=== PATIENT | male | born 1990 | race Native Hawaiian/Other Pacific Islander ===

== ENCOUNTER 2020-08-27 08:31 | Outpatient (REF) | payer MEDICAID, SELFPAY | END 2020-08-27 08:32 | disposition home or self-care (01) | LOC: HO.LAB 08:31 | PROVIDERS: Visit Provider Internal Medicine | DX: Z20.828 Contact with and (suspected) exposure to other viral communicable diseases (principal) | CPT/HCPCS: C9803; U0003 ==

== ENCOUNTER 2021-01-31 09:20 | Outpatient (REF) | payer MEDICAID, SELFPAY ==
[2021-01-31 09:46] LABS: COVID-19 Test Negative (Negative)
== END 2021-01-31 09:21 | disposition home or self-care (01) ==
LOC: HO.LAB 09:20
PROVIDERS: Visit Provider Internal Medicine
DX: Z20.822 Contact with and (suspected) exposure to COVID-19 (principal)
CPT/HCPCS: 36415; 87635; C9803

== ENCOUNTER 2021-02-11 09:38 | Outpatient (REF) | payer MEDICAID, SELFPAY ==
[2021-02-11 10:56] LABS: MANUAL DIFF FLAG NO
[2021-02-11 11:01] LABS: Basophils Percent Auto 0.6 % (0-2); Eosinophils Absolute Auto 0.2 X10*3/uL (0.0-0.4); Eosinophils Percent Auto 2.6 % (0-4); Hematocrit 46.3 % (42-52); Hemoglobin 14.8 g/dl (14.0-18.0); Imm Gran Abs Auto 0.02 X10*3/uL (0.00-0.03); Imm Gran Pct Auto 0.3 % (0.0-0.4); Lymphocytes Absolute Auto 2.5 X10*3/uL (1.2-4.9); Mean Corpuscular Hemoglobin 27.1 pg (27.0-33.0); Mean Corpuscular Volume 84.8 fL (80-98); Mean Platelet Volume 9.4 fL (9.4-12.4); Monocytes Absolute Auto 0.6 X10*3/uL (0.1-1.2); Monocytes Percent Auto 8.5 % (2-11); Neutrophils Absolute Auto 3.8 X10*3/uL (2.0-8.3); Platelet Count 306 X10*3/uL (160-400); Red Blood Count 5.46 X10*6/uL (4.60-5.80); Red Cell Distribution Width 13.1 % (11.0-16.0); White Blood Count 7.2 X10*3/uL (4.8-10.8)
[2021-02-11 11:20] LABS: Alanine Aminotransferase 32 U/L (0-40); Albumin Level 4.4 g/dL (3.5-5.0); Alkaline Phosphatase 108 U/L (39-117); Anion Gap 11 (12-20); Aspartate Amino Transferase 22 U/L (5-37); Bilirubin Total 0.3 mg/dL (0.0-1.0); Blood Urea Nitrogen 21 mg/dL (9-16); Calcium 10.2 mg/dL (8.4-10.2); Carbon Dioxide 29 mmol/L (22-29); Chloride 105 mmol/L (96-108); Cholesterol 127 mg/dL; Estimated Glomerular Filt Rate > 60; Glucose Random 108 mg/dL (60-115); HDL Cholesterol 31 mg/dL; LDL Cholesterol Calculated 82 mg/dl; Potassium 5.5 mmol/L (3.3-5.1); Sodium 139 mmol/L (135-145); Total Protein 7.8 g/dL (6.5-8.0); Triglycerides 71 mg/dL
[2021-02-11 11:41] LABS: Thyroid Stimulating Hormone 0.86 uIU/mL (0.32-4.0)
== END 2021-02-11 09:39 | disposition home or self-care (01) ==
LOC: HO.LAB 09:38
PROVIDERS: PCP Internal Medicine; Visit Provider Internal Medicine
DX: Z00.00 Encounter for general adult medical examination without abnormal findings (principal); E66.01 Morbid (severe) obesity due to excess calories; F11.14 Opioid abuse with opioid-induced mood disorder; R21 Rash and other nonspecific skin eruption
CPT/HCPCS: 36415; 80053; 80061; 84443; 85025

== ENCOUNTER 2021-09-14 08:57 | Emergency (ER) | payer MEDICAID, SELFPAY ==
[2021-09-14 10:22] VITALS: BP 116/75; PULSE 83; RESP 16; TEMP 36.8; O2SAT 97; BMI 34.8
[2021-09-14 10:42] VITALS: BP 116/76; PULSE 82; RESP 18; O2SAT 99
--- NOTE | 2021-09-14 10:44 | PC.NURSE ---
pt alert and oriented, vss, denies pain. pt c/o nausea and one episode of diarrhea that started last night. no vomiting, no fever, no sob, no headache, no dizziness. pt reports that both his 2 yr old and his 8 yr old step-son has been having the same symptoms. he reports his 2 yr was diagnosed with ear infection but no diagnosis for his 8 yr old.
--- NOTE | 2021-09-14 10:55 | ED.NAVMDI ---
HPI - Nausea/Vomiting/Diarrhea General Chief complaint: Nausea/Vomiting/Diarrhea Stated complaint: vomiting Time Seen by Provider: 09/14/21 10:49 Source: patient Mode of arrival: ambulatory Limitations: no limitations History of Present Illness HPI Narrative: This is a 31 years old male presented to the emergency department with a chief complaint no nausea MD elicited complaint: nausea, vomiting and diarrhea Onset (ago): day(s) (1) Description of vomiting: watery Description of diarrhea: watery Associated nausea: Yes Associated abdominal pain: No Quality: cramping Associated symptoms: denies other symptoms Related Data Allergies Allergy/AdvReac Type Severity Reaction Status Date / Time shellfish derived Allergy Intermediate HIVES Verified 09/14/21 10:22 [SHELLFISH DERIVED] Review of Systems Review of Systems: Yes all other systems are reviewed and are negative ENT: Reports system reviewed and no additional complaints, except as documented Gastrointestinal: Gastrointestinal: Reports no additional gastrointestinal complaints, Reports diarrhea, Reports nausea and Reports vomiting Neurologic: Reports system reviewed and no additional complaints, except as documented PMFSH Past Medical History Attestation statement: The following information was validated with the patient. Medical History No known health problems Social History Social History Advance Directives: No Advance Directives Information Provided: No Physical Exam Vital Signs: Vital Signs: Last Vital Signs Temp 98.2 F 09/14/21 10:22 Pulse 82 09/14/21 10:42 Resp 18 09/14/21 10:42 BP 116/76 09/14/21 10:42 Pulse Ox 99 09/14/21 10:42 BMI result Body Mass Index 34.8 Const: General: cooperative and comfortable HENMT: Head: Yes normal to inspection General nose exam: Normal external nose present Face and sinus: Yes normal facial exam Mouth: Normal oral and palatal mucosa present Neck: Neck: Yes normal visual inspection, Yes full ROM and Yes no lymphadenopathy Chest: Chest palpation & inspection: normal inspection of the chest Resp: Effort & Inspection: normal respiratory effort Auscultation: clear to auscultation bilaterally Cardio: Jugular venous distension: no JVD Rate: regular rate Rhythm: regular rhythm GI: Inspection: Yes normal to inspection Skin: General skin exam: no rashes or lesions noted Course Reevaluation(s) Reevaluation #1: Feels much better no further vomiting tolerating po well ,Labs OK,will d/c home MDM - Nausea/Vomiting/Diarrhea Lab Data Attestation: I reviewed the patient's lab results. Result diagrams: 09/14/21 10:59 09/14/21 11:00 Labs: Lab Results 09/14/21 09/14/21 09/14/21 Range/Units 10:59 10:59 11:00 WBC 7.2 (4.8-10.8) X10*3/uL RBC 5.42 (4.60-5.80) X10*6/uL Hgb 15.1 (14.0-18.0) g/dl Hct 46.0 (42.0-52.0) % MCV 84.9 (80.0-98.0) fL MCH 27.9 (27.0-33.0) pg MCHC 32.8 (31.0-36.0) g/dl RDW 13.2 (11.0-16.0) % Plt Count 310 (160-400) X10*3/uL MPV 9.2 L (9.4-12.4) fL Immature Gran % (Auto) 0.3 (0.0-0.4) % Neut % (Auto) 52.9 (45-73) % Lymph % (Auto) 36.2 (20-40) % [place] % (Auto) 7.5 (2-11) % Eos % (Auto) 2.3 (0-4) % Baso % (Auto) 0.8 (0-2) % Lymph # (Auto) 2.6 (1.2-4.9) X10*3/uL [place] # (Auto) 0.5 (0.1-1.2) X10*3/uL Eos # (Auto) 0.2 (0.0-0.4) X10*3/uL Baso # (Auto) 0.1 (0.0-0.2) X10*3/uL Abs Immat Gran (auto) 0.02 (0.00-0.03) X10*3/uL Absolute Neuts (auto) 3.8 (2.0-8.3) x10*3/uL Absolute Nucleated RBC 0.000 (0.0-0.012) X10*3/uL Nucleated RBC % (auto) 0.0 (0.0-0.2) /100WBC Sodium 139 (135-145) mmol/L Potassium 4.8 (3.3-5.1) mmol/L Chloride 106 (96-108) mmol/L Carbon Dioxide 26 (22-29) mmol/L Anion Gap 12 (12-20) BUN 24 H (9-16) mg/dL Creatinine 1.03 (0.5-1.4) mg/dL Estim Creat Clear Calc 134.2 Estimated GFR > 60 Random Glucose 123 H (60-115) mg/dL Calcium 10.2 (8.4-10.2) mg/dL Total Bilirubin 0.3 (0.0-1.0) mg/dL AST 24 (5-37) U/L ALT 32 (0-40) U/L Alkaline Phosphatase 118 H (39-117) U/L Total Protein 8.3 H (6.5-8.0) g/dL Albumin 4.5 (3.5-5.0) g/dL Lipase 24 (8-78) U/L COVID-19 ([facility]) Negative (Negative) COVID-19 Clin Com See Note Discharge Plan Discharge Clinical Impression: Vomiting Patient Disposition: Home, Self-Care Instructions: Acute Nausea and Vomiting (ED) Referrals: Yue Angulo MD [Primary Care Provider] - 2 days Stand Alone Forms: Work/School Release
[2021-09-14 11:04] LABS: MANUAL DIFF FLAG NO
[2021-09-14 11:05] LABS: Basophils Absolute Auto 0.1 X10*3/uL (0.0-0.2); Basophils Percent Auto 0.8 % (0-2); Eosinophils Absolute Auto 0.2 X10*3/uL (0.0-0.4); Eosinophils Percent Auto 2.3 % (0-4); Hemoglobin 15.1 g/dl (14.0-18.0); Imm Gran Abs Auto 0.02 X10*3/uL (0.00-0.03); Imm Gran Pct Auto 0.3 % (0.0-0.4); Lymphocytes Absolute Auto 2.6 X10*3/uL (1.2-4.9); Lymphocytes Percent Auto 36.2 % (20-40); Mean Corpuscular HGB Conc 32.8 g/dl (31.0-36.0); Mean Corpuscular Hemoglobin 27.9 pg (27.0-33.0); Mean Corpuscular Volume 84.9 fL (80.0-98.0); Mean Platelet Volume 9.2 fL (9.4-12.4); Monocytes Absolute Auto 0.5 X10*3/uL (0.1-1.2); Monocytes Percent Auto 7.5 % (2-11); Neutrophils Absolute Auto 3.8 x10*3/uL (2.0-8.3); Neutrophils Percent Auto 52.9 % (45-73); Platelet Count 310 X10*3/uL (160-400); Red Blood Count 5.42 X10*6/uL (4.60-5.80); Red Cell Distribution Width 13.2 % (11.0-16.0); White Blood Count 7.2 X10*3/uL (4.8-10.8)
[2021-09-14 11:32] LABS: Alanine Aminotransferase 32 U/L (0-40); Albumin Level 4.5 g/dL (3.5-5.0); Alkaline Phosphatase 118 U/L (39-117); Anion Gap 12 (12-20); Aspartate Amino Transferase 24 U/L (5-37); Bilirubin Total 0.3 mg/dL (0.0-1.0); Blood Urea Nitrogen 24 mg/dL (9-16); Calcium 10.2 mg/dL (8.4-10.2); Carbon Dioxide 26 mmol/L (22-29); Chloride 106 mmol/L (96-108); Creatinine Clr Calc Pharmacy 134.2; Estimated Glomerular Filt Rate > 60; Glucose Random 123 mg/dL (60-115); Lipase 24 U/L (8-78); Potassium 4.8 mmol/L (3.3-5.1); Sodium 139 mmol/L (135-145); Total Protein 8.3 g/dL (6.5-8.0)
[2021-09-14] MEDS: 0.9 % Sodium Chloride 1,000 ML 999 ML IVCONT (11:51)
[2021-09-14 12:02] LABS: COVID-19 Test Negative (Negative)
--- NOTE | 2021-09-14 12:23 | PC.NURSE ---
pt medically cleared for discharge, discharge summary given and explained to pt. pt alert and oriented, denies pain. no complaints. steady gait on discharge.
== END 2021-09-14 12:23 | disposition home or self-care (01) ==
PROVIDERS: Emergency Provider Emergency Medicine; PCP Internal Medicine
DX: R11.2 Nausea with vomiting, unspecified (principal); Z20.822 Contact with and (suspected) exposure to COVID-19
CPT/HCPCS: 36415; 80053; 83690; 85025; 87635; 96360; 99284

== ENCOUNTER 2021-11-25 08:30 | Emergency (ER) | payer MEDICAID, SELFPAY ==
[2021-11-25 08:50] VITALS: BP 120/68; PULSE 73; RESP 18; TEMP 36.3; O2SAT 98; BMI 33.5
--- NOTE | 2021-11-25 09:08 | ED.NAVMDI ---
HPI - Nausea/Vomiting/Diarrhea General Chief complaint: Nausea/Vomiting/Diarrhea Stated complaint: Diarrhea Time Seen by Provider: 11/25/21 09:02 Source: patient and paraprofessional interpreter Mode of arrival: ambulatory Limitations: language barrier History of Present Illness HPI Narrative: 31-year-old male healthy here with reports of multiple episodes of diarrhea in the last 24 hours with no associated abdominal pain, vomiting, fever, urinary symptoms. The patient is here with his son who has similar symptoms. Associated nausea: No Related Data Allergies Allergy/AdvReac Type Severity Reaction Status Date / Time shellfish derived Allergy Intermediate HIVES Verified 11/25/21 08:50 [SHELLFISH DERIVED] Review of Systems Review of Systems: Yes all other systems are reviewed and are negative Constitutional: Constitutional: Reports no additional constitutional complaints, Denies body ache(s), Denies chills, Denies fever(s), Denies headache(s) and Denies weakness Eyes: Eyes: Reports no additional eye complaints and Denies change in vision ENT: Reports system reviewed and no additional complaints, except as documented, Denies dizziness, Denies headache(s), Denies nasal congestion, Denies nasal discharge and Denies neck pain Cardiovascular: Cardiovascular: Reports no additional cardiovascular complaints, Denies chest pain, Denies leg edema and Denies dyspnea Respiratory: Respiratory: Reports no additional respiratory complaints, Denies cough and Denies dyspnea Gastrointestinal: Gastrointestinal: Reports no additional gastrointestinal complaints, Denies abdominal pain, Reports diarrhea, Denies nausea and Denies vomiting Genitourinary: Genitourinary: Denies urinary incontinence Musculoskeletal: Musculoskeletal: Reports no additional musculoskeletal complaints, Denies back pain, Denies arthralgias, Denies joint swelling, Denies neck pain, Denies numbness and Denies tingling Integumentary/Breasts: Skin/Breast: Reports system reviewed and no additional complaints, except as docu and Denies rash Neurologic: Reports system reviewed and no additional complaints, except as documented, Denies Abnormal speech present, Denies dizziness, Denies headache(s), Denies numbness, Denies tingling and Denies weakness PMFSH Past Medical History Attestation statement: The following information was validated with the patient. Source: old records reviewed and nursing notes reviewed Medical History No known health problems Social History Social History Advance Directives: No Advance Directives Information Provided: Yes Physical Exam Vital Signs: Vital Signs: Last Vital Signs Temp 97.3 F 11/25/21 08:50 Pulse 73 11/25/21 08:50 Resp 18 11/25/21 08:50 BP 120/68 11/25/21 08:50 Pulse Ox 98 11/25/21 08:50 BMI result Body Mass Index 33.5 Const: General: cooperative, healthy appearing, comfortable and no acute distress Orientation/consciousness: patient oriented x3 Limitations: no limitations HENMT: Head: Yes normal to inspection Ears: hearing grossly normal bilaterally and TM's normal bilaterally General nose exam: Normal external nose present Face and sinus: Yes normal facial exam Mouth: Normal oral and palatal mucosa present Throat: Yes posterior oropharynx normal, Yes tonsils normal and Yes uvula midline Eyes: General: appearance normal, both eyes and all related structures Pupils: Equal, round and reactive pupils present Neck: Neck: Yes normal visual inspection Chest: Chest palpation & inspection: normal inspection of the chest Resp: Effort & Inspection: normal respiratory effort Auscultation: clear to auscultation bilaterally Cardio: Rate: regular rate Rhythm: regular rhythm Peripheral pulses: Peripheral pulses 2+ throughout GI: Inspection: Yes normal to inspection Palpation (GI): Soft to palpation and nontender Auscultation: normal bowel sounds Back/Spine/Pelvis: Thoracic/Lumbar Spine: thoracic and lumbar spine normal to inspection Skin: General skin exam: no rashes or lesions noted Neuro: General: patient oriented x3, no focal motor deficits and normal sensation to monofilament Cranial nerves: Yes Equal, round and reactive pupils present Cognition (Neuro): normal cognition Speech: No Abnormal speech present Gait exam (Neuro): Normal gait present Motor exam (neuro): 5/5 motor strength present throughout Extrem: General: Yes normal to inspection Course Course Course Narrative: 31-year-old male here with reports of diarrhea multiple episodes in the last 24 hours with no reports abdominal pain or vomiting. Patient is here with some with similar symptoms. Dad tells me that there are multiple people aty home with similar symptoms. Vitals are stable. Patient appears well hydrated. He is tolerating p.o.. Abdomen is soft nontender. Likely viral. Will check COVID screen 0958-COVID screen is negative. Likely viral syndrome. Reviewed worrisome signs and symptoms when to return to the emergency department. Comfortable discharge home. MDM - Nausea/Vomiting/Diarrhea Medical Records Attestation: I reviewed the patient's medical records. Lab Data Attestation: I reviewed the patient's lab results. Labs: Lab Results 11/25/21 Range/Units 09:26 COVID-19 ([facility]) Negative (Negative) COVID-19 Clin Com See Note Discharge Plan Discharge Clinical Impression: Gastroenteritis Patient Disposition: Home, Self-Care Instructions: Gastroenteritis (DC) Additional Instructions: Start with clear liquids and then advance diet as tolerated Referrals: Yue Angulo MD [Primary Care Provider] - 1 week (For persistent symptoms) Stand Alone Forms: Work/School Release Print Language: Grenadian
[2021-11-25 09:51] LABS: COVID-19 Test Negative (Negative)
== END 2021-11-25 09:58 | disposition home or self-care (01) ==
PROVIDERS: Nurse Practitioner Family; Emergency Provider Emergency Medicine; PCP Internal Medicine
DX: K52.9 Noninfective gastroenteritis and colitis, unspecified (principal); Z20.822 Contact with and (suspected) exposure to COVID-19
CPT/HCPCS: 87635; 99282; 99283

== ENCOUNTER 2022-02-16 08:45 | Outpatient (REF) | payer MEDICAID, SELFPAY ==
[2022-02-16 09:17] LABS: MANUAL DIFF FLAG NO
[2022-02-16 09:42] LABS: Basophils Absolute Auto 0.1 X10*3/uL (0.0-0.2); Basophils Percent Auto 0.8 % (0-2); Eosinophils Absolute Auto 0.2 X10*3/uL (0.0-0.4); Eosinophils Percent Auto 2.1 % (0-4); Hematocrit 43.5 % (42.0-52.0); Hemoglobin 14.2 g/dl (14.0-18.0); Imm Gran Abs Auto 0.02 X10*3/uL (0.00-0.03); Imm Gran Pct Auto 0.3 % (0.0-0.4); Lymphocytes Absolute Auto 2.6 X10*3/uL (1.2-4.9); Lymphocytes Percent Auto 34.9 % (20-40); Mean Corpuscular HGB Conc 32.6 g/dl (31.0-36.0); Mean Corpuscular Hemoglobin 27.4 pg (27.0-33.0); Mean Corpuscular Volume 83.8 fL (80.0-98.0); Mean Platelet Volume 9.5 fL (9.4-12.4); Monocytes Absolute Auto 0.6 X10*3/uL (0.1-1.2); Monocytes Percent Auto 8.1 % (2-11); Neutrophils Absolute Auto 4.1 x10*3/uL (2.0-8.3); Neutrophils Percent Auto 53.8 % (45-73); Platelet Count 297 X10*3/uL (160-400); Red Blood Count 5.19 X10*6/uL (4.60-5.80); Red Cell Distribution Width 13.4 % (11.0-16.0); White Blood Count 7.5 X10*3/uL (4.8-10.8)
[2022-02-16 09:58] LABS: Alanine Aminotransferase 32 U/L (0-40); Albumin Level 4.2 g/dL (3.5-5.0); Alkaline Phosphatase 113 U/L (39-117); Anion Gap 12 (12-20); Aspartate Amino Transferase 22 U/L (5-37); Bilirubin Total 0.3 mg/dL (0.0-1.0); Blood Urea Nitrogen 19 mg/dL (9-16); Calcium 9.8 mg/dL (8.4-10.2); Carbon Dioxide 24 mmol/L (22-29); Chloride 106 mmol/L (96-108); Cholesterol 137 mg/dL; Estimated Glomerular Filt Rate > 60; Glucose Random 109 mg/dL (60-115); HDL Cholesterol 31 mg/dL; LDL Cholesterol Calculated 88 mg/dl; Potassium 4.8 mmol/L (3.3-5.1); Sodium 137 mmol/L (135-145); Triglycerides 92 mg/dL
== END 2022-02-16 08:46 | disposition home or self-care (01) ==
LOC: HO.LAB 08:45
PROVIDERS: PCP Internal Medicine; Visit Provider Internal Medicine
DX: Z00.00 Encounter for general adult medical examination without abnormal findings (principal); R10.31 Right lower quadrant pain; F11.14 Opioid abuse with opioid-induced mood disorder; Z72.0 Tobacco use
CPT/HCPCS: 36415; 80053; 80061; 85025

== ENCOUNTER 2022-03-20 05:53 | Emergency (ER) | payer MEDICAID, SELFPAY ==
[2022-03-20 06:03] VITALS: BP 126/79; PULSE 83; RESP 18; TEMP 36.9; O2SAT 98
[2022-03-20 06:10] VITALS: BP 126/79; PULSE 83; RESP 18; TEMP 36.9; O2SAT 98; BMI 34.7
--- NOTE | 2022-03-20 06:36 | ED.ABDPAIN ---
HPI - Abdominal Pain General Chief Complaint: Abdominal Pain Stated Complaint: n/v/d Time Seen by Provider: 03/20/22 06:35 Source: patient Mode of arrival: ambulatory Limitations: no limitations History of Present Illness HPI narrative: Patient with increased pain with N/V/D. This morning he had vomiting and diarrhea with eating and drinking. Patient had only one moderna vaccine. No one else at home is sick. Patient denies eating bad food or being food poisoned. MD elicited complaint: abdominal pain Pertinent past history: none Onset (ago): day(s) (3) Location: diffuse Severity: mild Quality: aching Exacerbating factors: eating Associated symptoms: nausea, vomiting, diarrhea and fever Related Data Previous Rx's Medication Instructions Recorded ondansetron 4 mg disintegrating 4 mg PO Q8H 4 days #12 tabs 03/20/22 tablet Allergies Allergy/AdvReac Type Severity Reaction Status Date / Time shellfish derived Allergy Intermediate HIVES Verified 11/25/21 08:50 [SHELLFISH DERIVED] Review of Systems Constitutional: Reports no additional constitutional complaints Eyes: Reports no additional eye complaints Denies dizziness Cardiovascular: Reports no additional cardiovascular complaints Respiratory: Reports as per HPI Gastrointestinal: Reports no additional gastrointestinal complaints Musculoskeletal: Reports no additional musculoskeletal complaints Skin/Breast: Denies rash Reports system reviewed and no additional complaints, except as documented, Denies dizziness and Denies Sensory deficit (Neuro) Psychiatric: Denies anxiety PMFSH Past Medical History Medical History No known health problems Social History Social History Advance Directives: No Advance Directives Information Provided: Yes Physical Exam ED Vital Signs: Vital Signs - 24 hr 03/20/22 06:03 03/20/22 06:10 Temperature 98.5 F 98.5 F Pulse Rate 83 83 Respiratory Rate 18 18 Blood Pressure 126/79 126/79 Pulse Oximetry 98 98 Oxygen Delivery Method Room Air Room Air BMI result Body Mass Index 34.7 Const General: healthy appearing Nutritional Appearance: average body habitus Orientation/consciousness: oriented to person and patient oriented x3 Limitations: no limitations HENMT Head: Yes normal to inspection Ears: external ears normal General nose exam: Normal external nose present Mouth: Normal oral and palatal mucosa present and oropharynx normal Throat: Yes posterior oropharynx normal Eyes General: appearance normal, both eyes and all related structures Neck Neck: Yes normal visual inspection Chest Chest palpation & inspection: normal inspection of the chest Resp Auscultation: clear to auscultation bilaterally Cardio Jugular venous distension: no JVD Rate: regular rate Rhythm: regular rhythm Heart sounds: S1 normal heart sound present and S2 normal heart sound present GI Inspection: Yes normal to inspection Palpation (GI): Soft to palpation, nontender and No hepatosplenomegaly present Auscultation: normal bowel sounds General: Yes no CVA tenderness Back/Spine/Pelvis Back: no CVA tenderness Skin General skin exam: no rashes or lesions noted Neuro General: oriented to person and patient oriented x3 Cranial nerves: Yes CN's II-XII intact bilaterally Motor exam (neuro): 5/5 motor strength present throughout Sensory Exam: No Sensory deficit (Neuro) Extrem General: Yes normal to inspection Psych Appearance: grossly normal Course Reevaluation(s) Reevaluation #1: patient with soft abdomen non focal, history likely secondary to viral gastroenteritis. Will start zofran, clear liquid diet and advance to BRAT diet when his vomiting and diarrhea stop Time: 06:46 Discharge Plan Discharge Clinical Impression: Gastroenteritis Patient Disposition: Home, Self-Care Instructions: Acute Nausea and Vomiting (ED), Acute Diarrhea (ED) Additional Instructions: clear liquid diet until diarrhea stops and then advance to BRAT diet Prescriptions: New ondansetron 4 mg tablet,disintegrating 4 mg PO Q8H 4 Days Qty: 12 0RF Referrals: Yue Angulo MD [Primary Care Provider] - 10 days Stand Alone Forms: Work/School Release
[2022-03-20] MEDS: Ondansetron ODT 4 MG TAB.RAPDIS TRANSLINGU (07:18)
== END 2022-03-20 08:00 | disposition home or self-care (01) ==
PROVIDERS: Emergency Provider Emergency Medicine; PCP Internal Medicine
DX: K52.9 Noninfective gastroenteritis and colitis, unspecified (principal)
CPT/HCPCS: 99282; 99283

== ENCOUNTER 2022-09-25 09:09 | Emergency (ER) | payer MEDICAID, SELFPAY ==
--- NOTE | 2022-09-25 09:34 | ED.ABDPAIN ---
HPI - Abdominal Pain General Stated Complaint: Pain Bellybutton Area Time Seen by Provider: 09/25/22 09:28 Source: patient Mode of arrival: ambulatory Limitations: no limitations History of Present Illness HPI narrative: 32 year old male with abdominal pain around his belly button. He has had pain for the past week. 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 He denies any issues with eating or having a bowel movement. He has never had surgery he denies nausea vomiting or diarrhea. He states he is otherwise healthy. Never had this problem in the past. MD elicited complaint: abdominal pain Related Data Previous Rx's Medication Instructions Recorded ondansetron 4 mg disintegrating 4 mg PO Q8H 4 days #12 tabs 03/20/22 tablet Allergies Allergy/AdvReac Type Severity Reaction Status Date / Time shellfish derived Allergy Intermediate HIVES Verified 11/25/21 08:50 [SHELLFISH DERIVED] Review of Systems Review of Systems Review of systems: General: Patient denies any fever chills recent illness or falls Musculoskeletal: Denies back pain or body aches or other injuries HEENT: denies headache, runny nose, ear pain Respiratory: denies shortness of breath, cough Cardiovascular: no chest pain or palpitations : denies dysuria, frequency Abdomen: no nausea vomiting periumbilical abdominal pain Extremities: no swelling, no pain Skin: no diaphoresis Yes all other systems are reviewed and are negative PMFSH Past Medical History Medical History No known health problems Physical Exam ED General: Well-appearing well-nourished in no signs of distress HEENT: Normocephalic atraumatic Neck: No signs of JVD, no masses no tenderness or lymphadenopathy Cardiovascular: Regular rate and rhythm Respiratory: Clear to auscultation bilaterally Abdomen: Soft non tender no masses around the belly button no hernia palpated it is slightly tender, hernia check in the scrotum with no hernia palpated. Extremities: Normal pedal pulses no signs of edema Skin: Dry warm no rashes Back: No tenderness full ROM Medical Decision Making Medical Decision Making MDM Narrative: Concern for hernia vs intraabdominal issue. I think this is more likely a strain his exam is fairly benign and he is eating drinking and having normal bowel movements. I don't think he needs a CT and will play conservative with rest heating pad and ibuprofen at this time. Differential Diagnosis Differential Diagnoses: The differential diagnosis associated with the presentation includes appendicitis, hernia, obstruction, diverticulitis. It appears to just by a strain as I am unable to palpate a hernia and he is eating an drinking normally. Admission/Observation Consideration of admission/observation: Escalation of care including admission/observation considered Patient looks well normal exam Discharge Plan Discharge Clinical Impression: Abdominal muscle strain Patient Disposition: Home, Self-Care Instructions: Abdominal Pain (ED), Muscle Strain (ED), Core Strengthening Exercises (ED) Additional Instructions: You can use a heating pad as needed. You can also your tylenol or ibuprofen. If you can't have a bowel movement have worsening pain or any other concerns please return to the ED. Prescriptions: No Action ondansetron 4 mg tablet,disintegrating 4 mg PO Q8H 4 Days Qty: 12 0RF Stand Alone Forms: Work/School Release
[2022-09-25 09:39] VITALS: BP 116/82; PULSE 83; RESP 16; TEMP 36.7; O2SAT 97; BMI 34.8
[2022-09-25] MEDS: Ibuprofen 400 MG TABLET PO (09:49)
== END 2022-09-25 09:51 | disposition home or self-care (01) ==
LOC: HO.ED 09:46
PROVIDERS: Emergency Provider Student in an Organized Health Care Education/Training Program; PCP Internal Medicine
DX: S39.011A Strain of muscle, fascia and tendon of abdomen, initial encounter (principal); X58.XXXA Exposure to other specified factors, initial encounter; Y93.9 Activity, unspecified; Y92.9 Unspecified place or not applicable; Y99.9 Unspecified external cause status
CPT/HCPCS: 99283

== ENCOUNTER 2022-09-28 10:13 | Emergency (ER) | payer MEDICAID, SELFPAY ==
[2022-09-28 10:39] VITALS: BP 121/81; PULSE 115; RESP 20; TEMP 36.9; O2SAT 97; BMI 34.8
[2022-09-28 11:40] LABS: Influenza A PCR NEGATIVE (Negative); Influenza B PCR NEGATIVE (Negative); Resp Syncy Virus RNA Qual PCR NEGATIVE (Negative); SARS COV2 PCR INHOUSE POSITIVE (Negative)
--- NOTE | 2022-09-28 12:07 | ED.GENADULT ---
HPI - General Adult General Chief complaint: General Medical Stated complaint: body aches stuffy nose Time Seen by Provider: 09/28/22 12:05 Source: patient Mode of arrival: ambulatory Limitations: no limitations History of Present Illness HPI narrative: Patient is a 32-year-old male who presents to the emergency department today for evaluation of fever, headache, and fatigue. Reports symptom onset today. Reports that his daughter is ill at home with similar symptoms, and upper respiratory symptoms. Denies dizziness, lightheadedness, neck pain, neck stiffness, chest pain, shortness of breath, difficulty breathing, nausea, vomiting, abdominal pain. Related Data Previous Rx's Medication Instructions Recorded ondansetron 4 mg disintegrating 4 mg PO Q8H 4 days #12 tabs 03/20/22 tablet Allergies Allergy/AdvReac Type Severity Reaction Status Date / Time shellfish derived Allergy Intermediate HIVES Verified 11/25/21 08:50 [SHELLFISH DERIVED] Review of Systems Review of Systems: Constitutional: Positive fever. Positive chills. No weakness. Positive fatigue. ENT/ Mouth: No Ear Pain, no Nasal Congestion, no sore throat, No Rhinorrhea, No Swallowing Difficulty Skin: No rash or itching. Cardiovascular: No chest pain. No palpitations. Respiratory: No shortness of breath. No cough. No sputum production. Gastrointestinal: No nausea. No vomiting. No diarrhea. No abdominal pain. Genitourinary: No burning micturition. No urinary frequency. Neurologic: Positive headache. No dizziness. No syncope. No numbness or tingling in the extremities. Musculoskeletal: No muscle pain. No back pain. No joint pain or stiffness. Yes all other systems are reviewed and are negative [facility] Past Medical History Attestation statement: The following information was validated with the patient. Source: old records reviewed Medical History No known health problems Social History Social History Advance Directives: No Advance Directives Information Provided: No Physical Exam ED Vital Signs: Vital Signs - 24 hr 09/28/22 10:39 Temperature 98.5 F Pulse Rate 115 H Respiratory Rate 20 Blood Pressure 121/81 Pulse Oximetry 97 Oxygen Delivery Method Room Air BMI result Body Mass Index 34.8 Appearance: Alert.?Oriented to person, place and time. No acute distress.?Normal affect. Eyes: Pupils equal, round and reactive to light.? ENT: Pharynx normal.??TM normal bilaterally Neck: Normal inspection.? Neck supple.??Full AROM. No nuchal rigidity CVS: Heart sounds normal. Normal heart rate and rhythm.? Pulses normal.?? Respiratory: No respiratory distress.? Lung sounds clear to auscultation bilaterally?? Abdomen: Soft and non-tender. Normoactive bowel sounds. Skin: Skin warm and dry.? Normal skin color.? Extremities: No lower extremity edema.? Neuro: Moves all extremities spontaneously. Sensation intact bilaterally. CN II-XII intact. No focal neuro deficits. Ambulates with normal steady gait. Medical Decision Making Medical Decision Making [facility] Narrative: Patient is a 32-year-old male with no pertinent past medical history presenting for evaluation of fever and headache. COVID-19 testing positive. Reviewed Paxlovid, indications for use and potential side effects, patient declines. Influenza testing negative. At this time history and physical exam not consistent with meningitis, no nuchal rigidity, no meningismus. Well-appearing, nontoxic, afebrile, or tachypnea/hypoxia. Mild tachycardia initially, upon re-evaluation heart rate was 94. Speaking clear full sentences, ambulatory with steady gait. Discussed conservative treatment including rest, hydration, Tylenol/ibuprofen as needed for fever and body aches, saline nasal spray, humidifier, [id number] cold medication. Advised to follow-up with primary care provider as needed, discussed reasons to return back to the emergency department. All questions were answered. Patient discharged home in stable condition. Provided with a return to work/school note. Lab Data [facility] Lab Attestation statement: I reviewed the patient's lab results. Labs: Lab Results 09/28/22 Range/Units 10:53 Influenza Type A (PCR) NEGATIVE (Negative) Influenza Type B (PCR) NEGATIVE (Negative) RSV RNA Qual (PCR) NEGATIVE (Negative) SARS-CoV-2 RNA (RT-PCR) POSITIVE A (Negative) Discharge Plan Discharge Clinical Impression: COVID-19 Patient Disposition: Home, Self-Care Additional Instructions: Be sure to rest, stay well hydrated drinking plenty of fluids, eat small frequent meals. Tylenol/ibuprofen can be used as needed for fever/pain. Cneb-ayi-pnebhiy cold medications may be helpful as well for symptoms. Saline nasal spray, humidifier may be helpful for nasal congestion. You may return to the emergency department with any new or worsening symptoms or concerns. Follow-up with your primary care provider as needed. Should remain out of school/ work until symptoms have resolved and have been without a fever for 24 hours without the use of Tylenol or ibuprofen. Prescriptions: No Action ondansetron 4 mg tablet,disintegrating 4 mg PO Q8H 4 Days Qty: 12 0RF Referrals: Yue Angulo MD [Primary Care Provider] - Stand Alone Forms: Work/School Release
== END 2022-09-28 12:14 | disposition home or self-care (01) ==
PROVIDERS: Emergency Provider Emergency Medicine; PCP Internal Medicine
DX: U07.1 COVID-19 (principal); M79.10 Myalgia, unspecified site; R51.9 Headache, unspecified
CPT/HCPCS: 0241U; 99282; 99283

== ENCOUNTER 2022-12-24 08:07 | Emergency (ER) | payer MEDICAID, SELFPAY ==
[2022-12-24 08:12] VITALS: BP 108/76; PULSE 86; RESP 18; TEMP 36.6; O2SAT 98; BMI 33.5
--- NOTE | 2022-12-24 08:32 | ED.GENADULT ---
HPI - General Adult General Chief complaint: Eye Problems Stated complaint: [place] eye Time Seen by Provider: 12/24/22 08:30 Source: patient Mode of arrival: ambulatory Limitations: no limitations Related Data Previous Rx's Medication Instructions Recorded ondansetron 4 mg disintegrating 4 mg PO Q8H 4 days #12 tabs 03/20/22 tablet Allergies Allergy/AdvReac Type Severity Reaction Status Date / Time shellfish derived Allergy Intermediate HIVES Verified 11/25/21 08:50 [SHELLFISH DERIVED] PMFSH Past Medical History Medical History No known health problems Social History Social History Advance Directives: No Advance Directives Information Provided: No Physical Exam ED Vital Signs: Vital Signs - 24 hr 12/24/22 08:12 Temperature 98 F Pulse Rate 86 Respiratory Rate 18 Blood Pressure 108/76 Pulse Oximetry 98 Oxygen Delivery Method Room Air BMI result Body Mass Index 33.5 Discharge Plan Discharge Prescriptions: No Action ondansetron 4 mg tablet,disintegrating 4 mg PO Q8H 4 Days Qty: 12 0RF
--- NOTE | 2022-12-24 08:35 | ED_ITS ---
HPI - Eye Problem General Chief complaint: Eye Problems Stated complaint: [place] eye Time Seen by Provider: 12/24/22 08:30 Source: patient Mode of arrival: ambulatory Limitations: no limitations History of Present Illness HPI Narrative: 32-year-old male who presents emergency department for evaluation of left eye infection/pinkeye. Patient states that his into children had pinkeye and are on topical antibiotics. He states he woke up this morning his eye was crusted shut and he had a watery discharge from his left eye. The patient went to work and his boss was concerned that he had pinkeye which is contagious and told him to go to the emergency department to get evaluated. Patient denies any pain or change in vision of his left eye but he states that the left eye is pruritic. He denied fever, chills, rhinorrhea, sore throat, ear pain. Related Data Previous Rx's Medication Instructions Recorded ondansetron 4 mg disintegrating 4 mg PO Q8H 4 days #12 tabs 03/20/22 tablet sulfacetamide sodium 10 % eye drops 2 drp ophthalmic-Left Q4H #5 mL 12/24/22 Allergies Allergy/AdvReac Type Severity Reaction Status Date / Time shellfish derived Allergy Intermediate HIVES Verified 11/25/21 08:50 [SHELLFISH DERIVED] Review of Systems Review of Systems: Yes all other systems are reviewed and are negative [facility] Past Medical History Medical History No known health problems Social History Social History Advance Directives: No Advance Directives Information Provided: No Physical Exam Vital Signs: Vital Signs: Last Vital Signs Temp 98 F 12/24/22 08:12 Pulse 86 12/24/22 08:12 Resp 18 12/24/22 08:12 BP 108/76 12/24/22 08:12 Pulse Ox 98 12/24/22 08:12 O2 Del Method 12/24/22 08:12 BMI result Body Mass Index 33.5 General: Awake, alert, male patient, pleasant, cooperative in no distress HEENT: Head normal cephalic atraumatic, pupils were equal round reactive light, the left sclera and conjunctiva are injected in erythematous, patient has a watery discharge from the left eye, no rhinorrhea, mouth revealed moist membranes with no erythema or exudates Neck: Supple, no adenopathy Medical Decision Making Medical Decision Making MDM Narrative: 32-year-old male who presents emergency department for evaluation of redness of his left eye, discharge and pruritus from the left eye. Patient's and 2 children have conjunctivitis and are currently being treated with topical antibiotics. Patient's findings are consistent with acute conjunctivitis and I did discuss this with him. Patient was started on Bleph 10 2 drops every 4 hours to the left eye for 7 days. He was given a work note for 5 days. He was given printed and verbal instructions and discharged home. Differential Diagnosis Differential diagnosis includes but is not limited to conjunctivitis, corneal abrasion Discharge Plan Discharge Clinical Impression: Conjunctivitis of left eye Qualifiers: Conjunctivitis type: acute Acute conjunctivitis type: unspecified Qualified Code(s): H10.32 - Unspecified acute conjunctivitis, left eye Patient Disposition: Home, Self-Care Instructions: Conjunctivitis (ED) Additional Instructions: Your exam and symptoms are consistent with conjunctivitis (infection of the white part of the eye). Use the sulfacetamide eyedrops, 2 drops in the left eye every 4 hours while awake, use this for 7 days. Take ibuprofen 200 mg pills, 2 pills every 6 hours as needed for pain or fever. Take Tylenol (acetaminophen) 500 mg pills, 2 pills every 6 hours as needed for pain or fever. Follow-up with your doctor in 2 days. Please return to the emergency department if your symptoms get worse or if you develop any symptoms that are concerning to you. Please see the work note Prescriptions: New sulfacetamide sodium 10 % drops 2 drp ophthalmic-Left Q4H Qty: 5 0RF No Action ondansetron 4 mg tablet,disintegrating 4 mg PO Q8H 4 Days Qty: 12 0RF Stand Alone Forms: Work/School Release
== END 2022-12-24 08:47 | disposition home or self-care (01) ==
PROVIDERS: Emergency Provider Emergency Medicine Emergency Medical Services; PCP Internal Medicine
DX: H10.32 Unspecified acute conjunctivitis, left eye (principal)
CPT/HCPCS: 99282; 99283

== ENCOUNTER 2023-01-15 07:39 | Outpatient (REF) | payer MEDICAID, SELFPAY ==
[2023-01-15 07:50] LABS: MANUAL DIFF FLAG NO
[2023-01-15 08:43] LABS: Basophils Absolute Auto 0.1 X10*3/uL (0.0-0.2); Basophils Percent Auto 0.9 % (0-2); Eosinophils Absolute Auto 0.2 X10*3/uL (0.0-0.4); Eosinophils Percent Auto 2.7 % (0-4); Hematocrit 45.2 % (42.0-52.0); Hemoglobin 14.4 g/dl (14.0-18.0); Imm Gran Abs Auto 0.03 X10*3/uL (0.00-0.03); Imm Gran Pct Auto 0.4 % (0.0-0.4); Lymphocytes Absolute Auto 2.7 X10*3/uL (1.2-4.9); Mean Corpuscular HGB Conc 31.9 g/dl (31.0-36.0); Mean Corpuscular Volume 84.8 fL (80.0-98.0); Mean Platelet Volume 9.7 fL (9.4-12.4); Monocytes Absolute Auto 0.6 X10*3/uL (0.1-1.2); Monocytes Percent Auto 7.5 % (2-11); Neutrophils Absolute Auto 3.9 x10*3/uL (2.0-8.3); Neutrophils Percent Auto 52.5 % (45-73); Platelet Count 303 X10*3/uL (160-400); Red Blood Count 5.33 X10*6/uL (4.60-5.80); Red Cell Distribution Width 13.2 % (11.0-16.0); White Blood Count 7.4 X10*3/uL (4.8-10.8)
[2023-01-15 09:35] LABS: Alanine Aminotransferase 32 U/L (0-40); Albumin Level 4.1 g/dL (3.5-5.0); Alkaline Phosphatase 98 U/L (39-117); Anion Gap 13 (12-20); Aspartate Amino Transferase 24 U/L (5-37); Bilirubin Total 0.3 mg/dL (0.0-1.0); Blood Urea Nitrogen 19 mg/dL (9-16); Calcium 9.4 mg/dL (8.4-10.2); Carbon Dioxide 23 mmol/L (22-29); Chloride 108 mmol/L (96-108); Cholesterol 118 mg/dL; Estimated Glomerular Filt Rate > 60; Glucose Random 104 mg/dL (60-115); HDL Cholesterol 28 mg/dL; LDL Cholesterol Calculated 78 mg/dl; Potassium 4.7 mmol/L (3.3-5.1); Sodium 139 mmol/L (135-145); Total Protein 7.5 g/dL (6.5-8.0); Triglycerides 60 mg/dL
[2023-01-15 09:55] LABS: Thyroid Stimulating Hormone 1.22 uIU/mL (0.32-4.0)
== END 2023-01-15 07:40 | disposition home or self-care (01) ==
LOC: HO.LAB 07:39
PROVIDERS: PCP Internal Medicine; Visit Provider Internal Medicine
DX: E66.9 Obesity, unspecified (principal); F11.14 Opioid abuse with opioid-induced mood disorder; I10 Essential (primary) hypertension; L30.0 Nummular dermatitis
CPT/HCPCS: 36415; 80053; 80061; 84443; 85025

== ENCOUNTER 2023-01-19 14:27 | Emergency (ER) | payer MEDICAID, SELFPAY ==
[2023-01-19 14:37] VITALS: BP 113/76; PULSE 105; RESP 12; TEMP 36.6; O2SAT 98; BMI 35.5
--- NOTE | 2023-01-19 14:37 | ED.NAVMDI ---
HPI - Nausea/Vomiting/Diarrhea General Chief complaint: Nausea/Vomiting/Diarrhea Stated complaint: Vomiting/Diarrhea Related Data Previous Rx's Medication Instructions Recorded ondansetron 4 mg disintegrating 4 mg PO Q8H 4 days #12 tabs 03/20/22 tablet sulfacetamide sodium 10 % eye drops 2 drp ophthalmic-Left Q4H #5 mL 12/24/22 Allergies Allergy/AdvReac Type Severity Reaction Status Date / Time shellfish derived Allergy Intermediate HIVES Verified 11/25/21 08:50 [SHELLFISH DERIVED] PMFSH Past Medical History Medical History No known health problems Social History Social History Advance Directives: No Advance Directives Information Provided: No Physical Exam Vital Signs: Vital Signs: Last Vital Signs Temp 98 F 01/19/23 14:37 Pulse 105 H 01/19/23 14:37 Resp 12 01/19/23 14:37 BP 113/76 01/19/23 14:37 Pulse Ox 98 01/19/23 14:37 O2 Del Method Room Air 01/19/23 14:37 BMI result Body Mass Index 35.5 Course Course Course Narrative: RME--32yo M w/no sig PMHx c/o epigastric abd pain, N/V/D x few days with decreased PO intake. Kids at home with similar sx. Admits tolerated some crackers Abdomen soft with mild epigastric tenderness, no rebound or guarding Labs, UA, COVID/Flu ordered Medical Decision Making Lab Data 01/19/23 15:06 01/19/23 15:06 Labs: Lab Results 01/19/23 01/19/23 01/19/23 Range/Units 15:03 15:03 15:06 WBC 10.3 (4.8-10.8) X10*3/uL RBC 5.25 (4.60-5.80) X10*6/uL Hgb 14.7 (14.0-18.0) g/dl Hct 43.2 (42.0-52.0) % MCV 82.3 (80.0-98.0) fL MCH 28.0 (27.0-33.0) pg MCHC 34.0 (31.0-36.0) g/dl RDW 13.2 (11.0-16.0) % Plt Count 303 (160-400) X10*3/uL MPV 9.2 L (9.4-12.4) fL Immature Gran % (Auto) 0.3 (0.0-0.4) % Neut % (Auto) 68.9 (45-73) % Lymph % (Auto) 21.8 (20-40) % [place] % (Auto) 6.6 (2-11) % Eos % (Auto) 2.1 (0-4) % Baso % (Auto) 0.3 (0-2) % Lymph # (Auto) 2.2 (1.2-4.9) X10*3/uL [place] # (Auto) 0.7 (0.1-1.2) X10*3/uL Eos # (Auto) 0.2 (0.0-0.4) X10*3/uL Baso # (Auto) 0.0 (0.0-0.2) X10*3/uL Abs Immat Gran (auto) 0.03 (0.00-0.03) X10*3/uL Absolute Neuts (auto) 7.1 (2.0-8.3) x10*3/uL Absolute Nucleated RBC 0.000 (0.0-0.012) X10*3/uL Nucleated RBC % (auto) 0.0 (0.0-0.2) /100WBC Sodium (135-145) mmol/L Potassium (3.3-5.1) mmol/L Chloride (96-108) mmol/L Carbon Dioxide (22-29) mmol/L Anion Gap (12-20) BUN (9-16) mg/dL Creatinine (0.5-1.4) mg/dL Estim Creat Clear Calc Estimated GFR Random Glucose (60-115) mg/dL Calcium (8.4-10.2) mg/dL Magnesium (1.6-2.6) mg/dL Total Bilirubin (0.0-1.0) mg/dL Direct Bilirubin (0.0-0.5) mg/dL AST (5-37) U/L ALT (0-40) U/L Alkaline Phosphatase (39-117) U/L Total Protein (6.5-8.0) g/dL Albumin (3.5-5.0) g/dL Lipase (8-78) U/L COVID-19 (IDALIA) Negative (Negative) COVID-19 Clin Com See Note Influenza Type A (HAILY) Negative (Negative) Influenza Type B (HAILY) Negative (Negative) Influenza A & B Note See Note 01/19/23 Range/Units 15:06 WBC (4.8-10.8) X10*3/uL RBC (4.60-5.80) X10*6/uL Hgb (14.0-18.0) g/dl Hct (42.0-52.0) % MCV (80.0-98.0) fL MCH (27.0-33.0) pg MCHC (31.0-36.0) g/dl RDW (11.0-16.0) % Plt Count (160-400) X10*3/uL MPV (9.4-12.4) fL Immature Gran % (Auto) (0.0-0.4) % Neut % (Auto) (45-73) % Lymph % (Auto) (20-40) % [place] % (Auto) (2-11) % Eos % (Auto) (0-4) % Baso % (Auto) (0-2) % Lymph # (Auto) (1.2-4.9) X10*3/uL [place] # (Auto) (0.1-1.2) X10*3/uL Eos # (Auto) (0.0-0.4) X10*3/uL Baso # (Auto) (0.0-0.2) X10*3/uL Abs Immat Gran (auto) (0.00-0.03) X10*3/uL Absolute Neuts (auto) (2.0-8.3) x10*3/uL Absolute Nucleated RBC (0.0-0.012) X10*3/uL Nucleated RBC % (auto) (0.0-0.2) /100WBC Sodium 140 (135-145) mmol/L Potassium 4.4 (3.3-5.1) mmol/L Chloride 106 (96-108) mmol/L Carbon Dioxide 27 (22-29) mmol/L Anion Gap 11 L (12-20) BUN 20 H (9-16) mg/dL Creatinine 1.11 (0.5-1.4) mg/dL Estim Creat Clear Calc 124.7 Estimated GFR > 60 Random Glucose 102 (60-115) mg/dL Calcium 9.5 (8.4-10.2) mg/dL Magnesium 2.0 (1.6-2.6) mg/dL Total Bilirubin 0.5 (0.0-1.0) mg/dL Direct Bilirubin 0.1 (0.0-0.5) mg/dL AST 22 (5-37) U/L ALT 34 (0-40) U/L Alkaline Phosphatase 97 (39-117) U/L Total Protein 7.5 (6.5-8.0) g/dL Albumin 4.2 (3.5-5.0) g/dL Lipase 18 (8-78) U/L COVID-19 (IDALIA) (Negative) COVID-19 Clin Com Influenza Type A (HAILY) (Negative) Influenza Type B (HAILY) (Negative) Influenza A & B Note Discharge Plan Discharge Clinical Impression: Abdominal pain Patient Disposition: [place]op[place] Prescriptions: No Action ondansetron 4 mg tablet,disintegrating 4 mg PO Q8H 4 Days Qty: 12 0RF sulfacetamide sodium 10 % drops 2 drp ophthalmic-Left Q4H Qty: 5 0RF Interventions: ED Discharge Assessment Last Done: 01/19/23 19:17 Discharge Date/Time: 01/19/23 19:24
[2023-01-19 15:10] LABS: MANUAL DIFF FLAG NO
[2023-01-19 15:19] LABS: Basophils Percent Auto 0.3 % (0-2); Eosinophils Absolute Auto 0.2 X10*3/uL (0.0-0.4); Eosinophils Percent Auto 2.1 % (0-4); Hematocrit 43.2 % (42.0-52.0); Hemoglobin 14.7 g/dl (14.0-18.0); Imm Gran Abs Auto 0.03 X10*3/uL (0.00-0.03); Imm Gran Pct Auto 0.3 % (0.0-0.4); Lymphocytes Absolute Auto 2.2 X10*3/uL (1.2-4.9); Lymphocytes Percent Auto 21.8 % (20-40); Mean Corpuscular Volume 82.3 fL (80.0-98.0); Mean Platelet Volume 9.2 fL (9.4-12.4); Monocytes Absolute Auto 0.7 X10*3/uL (0.1-1.2); Monocytes Percent Auto 6.6 % (2-11); Neutrophils Absolute Auto 7.1 x10*3/uL (2.0-8.3); Neutrophils Percent Auto 68.9 % (45-73); Platelet Count 303 X10*3/uL (160-400); Red Blood Count 5.25 X10*6/uL (4.60-5.80); Red Cell Distribution Width 13.2 % (11.0-16.0); White Blood Count 10.3 X10*3/uL (4.8-10.8)
[2023-01-19 15:31] LABS: COVID-19 Test Negative (Negative); IDNOW Serial# 08D9AD1C
[2023-01-19 15:33] LABS: IDNOW Serial# BCCEAD1C; Influenza A Negative (Negative); Influenza B2 Negative (Negative)
[2023-01-19 15:58] LABS: Alanine Aminotransferase 34 U/L (0-40); Albumin Level 4.2 g/dL (3.5-5.0); Alkaline Phosphatase 97 U/L (39-117); Anion Gap 11 (12-20); Aspartate Amino Transferase 22 U/L (5-37); Bilirubin Direct 0.1 mg/dL (0.0-0.5); Bilirubin Total 0.5 mg/dL (0.0-1.0); Blood Urea Nitrogen 20 mg/dL (9-16); Calcium 9.5 mg/dL (8.4-10.2); Carbon Dioxide 27 mmol/L (22-29); Chloride 106 mmol/L (96-108); Creatinine Clr Calc Pharmacy 124.7; Estimated Glomerular Filt Rate > 60; Glucose Random 102 mg/dL (60-115); Potassium 4.4 mmol/L (3.3-5.1); Sodium 140 mmol/L (135-145); Total Protein 7.5 g/dL (6.5-8.0)
[2023-01-19 16:06] LABS: Lipase 18 U/L (8-78)
--- NOTE | 2023-01-19 19:16 | PC.NURSE ---
Not in WR when called @ this time.
== END 2023-01-19 19:24 | disposition left against medical advice (07) ==
LOC: HO.ED 19:20
PROVIDERS: Physician Assistant; Emergency Provider Emergency Medicine; PCP Internal Medicine
DX: R10.2 Pelvic and perineal pain (principal); R11.2 Nausea with vomiting, unspecified; Z20.822 Contact with and (suspected) exposure to COVID-19; Z20.828 Contact with and (suspected) exposure to other viral communicable diseases; Z79.899 Other long term (current) drug therapy
CPT/HCPCS: 36415; 80048; 80076; 83690; 83735; 85025; 87502; 87635; 99282; 99283

== ENCOUNTER 2023-02-27 09:00 | Emergency (ER) | payer MEDICAID, SELFPAY ==
[2023-02-27 09:19] VITALS: PULSE 82; RESP 16; TEMP 36.7; O2SAT 97; BMI 37.4
--- NOTE | 2023-02-27 09:46 | ED_ITS ---
HPI - General Adult General Chief complaint: General Medical Stated complaint: Lump on R chest area, hurts Time Seen by Provider: 02/27/23 09:26 Source: patient, RN notes reviewed and old records reviewed Mode of arrival: ambulatory History of Present Illness HPI narrative: 32-year-old male with no significant past medical history presenting to the ED complaining of painful erythematous area to right breast x3 days. Denies known injury, fever/chills, drainage from area, nipple discharge, skin dimpling, known insect bites. reports paternal grandmother with history of breast cancer, denies personal history. Onset (ago): day(s) Related Data Previous Rx's Medication Instructions Recorded ondansetron 4 mg disintegrating 4 mg PO Q8H 4 days #12 tabs 03/20/22 tablet sulfacetamide sodium 10 % eye drops 2 drp ophthalmic-Left Q4H #5 mL 12/24/22 cephalexin 500 mg capsule 500 mg PO QID 7 days #28 caps 02/27/23 Allergies Allergy/AdvReac Type Severity Reaction Status Date / Time shellfish derived Allergy Intermediate HIVES Verified 02/27/23 09:19 [SHELLFISH DERIVED] Review of Systems Review of Systems: Constitutional: No Fever, No Chills ENT/Mouth: No Ear Pain, No Nasal Congestion, No sore throat, No Rhinorrhea, No Swallowing Difficulty Cardiovascular: No Chest Pain, No SOB Respiratory: No Cough, No Sputum Gastrointestinal: No Nausea, No Vomiting, No Abdominal pain Musculoskeletal: No joint pain, No Myalgias, No Joint Swelling Skin: + Skin Lesions, No rash Neuro: No Weakness, No Numbness, No Paresthesias Yes all other systems are reviewed and are negative Constitutional: Constitutional: Reports as per [facility] Past Medical History Attestation statement: The following information was validated with the patient. Source: old records reviewed Medical History No known health problems Social History Social History Advance Directives: No Advance Directives Information Provided: Yes Physical Exam ED Vital Signs: Vital Signs - 24 hr 02/27/23 09:19 Temperature 98.0 F Pulse Rate 82 Respiratory Rate 16 Pulse Oximetry 97 Oxygen Delivery Method Room Air BMI result Body Mass Index 37.4 Const General: cooperative, healthy appearing and no acute distress Orientation/consciousness: patient oriented x3 Limitations: no limitations HENMT Head: Yes normal to inspection and Yes atraumatic Ears: hearing grossly normal bilaterally General nose exam: Normal external nose present Face and sinus: Yes normal facial exam Eyes General: appearance normal, both eyes and all related structures EOM: EOMs intact bilaterally Neck Neck: Yes normal visual inspection and Yes no meningeal signs Chest Other: + erythematous, slightly warm, small area noted to right breast at 01:00 o'clock region. Tender to palpation. No fluctuance/ induration/ lump. No crepitus. No palpable masses. No lymphadenopathy. No skin dimpling/nipple discharge Chest palpation & inspection: no crepitus, no masses and tenderness Resp Effort & Inspection: normal respiratory effort and no respiratory distress Cardio Rate: regular rate Skin Wounds: no wounds Neuro General: patient oriented x3, tone normal and no meningeal signs Gait exam (Neuro): Normal gait present Extrem General: Yes normal to inspection Medical Decision Making Medical Decision Making MDM Narrative: 32-year-old male with no significant past medical history presenting to the ED complaining of painful erythematous area to right breast x3 days. on exam vital signs stable, NAD, nontoxic appearing, physical exam as noted above. Concern for early cellulitis vs folliculitis vs possible insect bite. Low suspicion for abscess or malignancy at this time. plan: P.o. antibiotics, PCP follow-up Results discussed with patient including worrisome signs and symptoms and strict return precautions, and when to return to the emergency department. They verbalized understanding and feel safe for discharge at this time. Differential Diagnosis Differential Diagnoses: The differential diagnosis associated with the presentation includes As above Admission/Observation Consideration of admission/observation: Escalation of care including admission/observation considered Lab Data [facility] Lab Attestation statement: I reviewed the patient's lab results. Radiology Impression Discussion of test interpretation with radiology: I have reviewed the radiologist's reading. External Record Review External record reviewed: Inpatient record, Office record, Outpatient record, Prior outpatient labs, Prior outpatient radiology, Primary care record and Outside ED record Tests considered The following testing was considered but not selected: As above Prescription Management I considered prescription management with: Antibiotic Discharge Plan Discharge Clinical Impression: Cellulitis Patient Disposition: Home, Self-Care Instructions: Cellulitis (DC) Additional Instructions: Keflex as an antibiotic please take as prescribed Keep an eye on the area, if is spreading, becoming increasingly red/ painful, turns to appointing head or you have fever return to the ED Prescriptions: New cephalexin 500 mg capsule 500 mg PO QID 7 Days Qty: 28 0RF No Action ondansetron 4 mg tablet,disintegrating 4 mg PO Q8H 4 Days Qty: 12 0RF sulfacetamide sodium 10 % drops 2 drp ophthalmic-Left Q4H Qty: 5 0RF Referrals: Yue Angulo MD [Primary Care Provider] - 3 days
== END 2023-02-27 10:28 | disposition home or self-care (01) ==
PROVIDERS: Emergency Provider Emergency Medicine Emergency Medical Services; PCP Internal Medicine
DX: L03.313 Cellulitis of chest wall (principal)
CPT/HCPCS: 99283

== ENCOUNTER 2023-05-02 10:17 | Emergency (ER) | payer MEDICAID, SELFPAY ==
--- NOTE | ~2023-05-02 | XR_ITS ---
EXAMINATION: X-ray bilateral ankle X-ray bilateral feet CLINICAL INFORMATION: Fall. Pain. COMPARISON: X-ray 07/21/2018 TECHNIQUE: Bilateral ankle each 2 views. Bilateral foot each 3 views. FINDINGS: Right ankle: Ankle soft tissue swelling. No acute fracture or dislocation is seen. Ankle mortise is maintained. Talar dome appears intact. Right foot: No visible acute fracture or dislocation. Alignment is anatomic. No significant joint space narrowing. Tarsometatarsal alignment is maintained. Heterotopic process appears intact. Posterior calcaneal spur. Left ankle: Mild lateral ankle soft tissue swelling. No acute fracture or dislocation. Ankle mortise is maintained. Talar dome is intact. Left foot: No visible acute fracture or dislocation. Alignment is anatomic. No significant joint space narrowing. Tarsometatarsal alignment is maintained. Heterotopic process appears intact. Tiny posterior calcaneal spur. XR/XR foot LT 2V IMPRESSION: Right ankle and foot: No radiographic evidence of acute fracture or dislocation. Small posterior calcaneal spurring. If there is persistent symptoms, recommend short-term follow-up radiographs. Left ankle foot: No visible acute fracture or dislocation. Tiny posterior calcaneal spurring. If there is persistent symptoms,, recommend short-term follow-up radiographs.
--- NOTE | ~2023-05-02 | XR_ITS ---
EXAMINATION: X-ray bilateral ankle X-ray bilateral feet CLINICAL INFORMATION: Fall. Pain. COMPARISON: X-ray 07/21/2018 TECHNIQUE: Bilateral ankle each 2 views. Bilateral foot each 3 views. FINDINGS: Right ankle: Ankle soft tissue swelling. No acute fracture or dislocation is seen. Ankle mortise is maintained. Talar dome appears intact. Right foot: No visible acute fracture or dislocation. Alignment is anatomic. No significant joint space narrowing. Tarsometatarsal alignment is maintained. Heterotopic process appears intact. Posterior calcaneal spur. Left ankle: Mild lateral ankle soft tissue swelling. No acute fracture or dislocation. Ankle mortise is maintained. Talar dome is intact. Left foot: No visible acute fracture or dislocation. Alignment is anatomic. No significant joint space narrowing. Tarsometatarsal alignment is maintained. Heterotopic process appears intact. Tiny posterior calcaneal spur. XR/XR foot RT 2V IMPRESSION: Right ankle and foot: No radiographic evidence of acute fracture or dislocation. Small posterior calcaneal spurring. If there is persistent symptoms, recommend short-term follow-up radiographs. Left ankle foot: No visible acute fracture or dislocation. Tiny posterior calcaneal spurring. If there is persistent symptoms,, recommend short-term follow-up radiographs.
--- NOTE | ~2023-05-02 | XR_ITS ---
EXAMINATION: X-ray bilateral ankle X-ray bilateral feet CLINICAL INFORMATION: Fall. Pain. COMPARISON: X-ray 07/21/2018 TECHNIQUE: Bilateral ankle each 2 views. Bilateral foot each 3 views. FINDINGS: Right ankle: Ankle soft tissue swelling. No acute fracture or dislocation is seen. Ankle mortise is maintained. Talar dome appears intact. Right foot: No visible acute fracture or dislocation. Alignment is anatomic. No significant joint space narrowing. Tarsometatarsal alignment is maintained. Heterotopic process appears intact. Posterior calcaneal spur. Left ankle: Mild lateral ankle soft tissue swelling. No acute fracture or dislocation. Ankle mortise is maintained. Talar dome is intact. Left foot: No visible acute fracture or dislocation. Alignment is anatomic. No significant joint space narrowing. Tarsometatarsal alignment is maintained. Heterotopic process appears intact. Tiny posterior calcaneal spur. XR/XR ankle RT 2V IMPRESSION: Right ankle and foot: No radiographic evidence of acute fracture or dislocation. Small posterior calcaneal spurring. If there is persistent symptoms, recommend short-term follow-up radiographs. Left ankle foot: No visible acute fracture or dislocation. Tiny posterior calcaneal spurring. If there is persistent symptoms,, recommend short-term follow-up radiographs.
--- NOTE | ~2023-05-02 | XR_ITS ---
EXAMINATION: X-ray bilateral ankle X-ray bilateral feet CLINICAL INFORMATION: Fall. Pain. COMPARISON: X-ray 07/21/2018 TECHNIQUE: Bilateral ankle each 2 views. Bilateral foot each 3 views. FINDINGS: Right ankle: Ankle soft tissue swelling. No acute fracture or dislocation is seen. Ankle mortise is maintained. Talar dome appears intact. Right foot: No visible acute fracture or dislocation. Alignment is anatomic. No significant joint space narrowing. Tarsometatarsal alignment is maintained. Heterotopic process appears intact. Posterior calcaneal spur. Left ankle: Mild lateral ankle soft tissue swelling. No acute fracture or dislocation. Ankle mortise is maintained. Talar dome is intact. Left foot: No visible acute fracture or dislocation. Alignment is anatomic. No significant joint space narrowing. Tarsometatarsal alignment is maintained. Heterotopic process appears intact. Tiny posterior calcaneal spur. XR/XR ankle LT min 3V IMPRESSION: Right ankle and foot: No radiographic evidence of acute fracture or dislocation. Small posterior calcaneal spurring. If there is persistent symptoms, recommend short-term follow-up radiographs. Left ankle foot: No visible acute fracture or dislocation. Tiny posterior calcaneal spurring. If there is persistent symptoms,, recommend short-term follow-up radiographs.
[2023-05-02 10:19] VITALS: BP 118/80; PULSE 88; RESP 18; TEMP 36.3; O2SAT 96; BMI 36.3
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
[2023-05-02 15:05] VITALS: BP 120/93; PULSE 73; RESP 16; O2SAT 100
== END 2023-05-02 15:11 | disposition home or self-care (01) ==
PROVIDERS: Emergency Provider Emergency Medicine Emergency Medical Services; PCP Internal Medicine
DX: S93.402A Sprain of unspecified ligament of left ankle, initial encounter (principal); S96.912A Strain of unspecified muscle and tendon at ankle and foot level, left foot, initial encounter; V18.0XXA Pedal cycle driver injured in noncollision transport accident in nontraffic accident, initial encounter; M79.674 Pain in right toe(s); Y93.55 Activity, bike riding; Y92.414 Local residential or business street as the place of occurrence of the external cause; Y99.9 Unspecified external cause status
CPT/HCPCS: 73600; 73610; 73620; 99283; 99284

== ENCOUNTER 2023-10-27 11:28 | Emergency (ER) | payer MEDICAID, SELFPAY ==
[2023-10-27 12:11] VITALS: BP 134/94; PULSE 102; RESP 18; TEMP 36.6; O2SAT 96; BMI 38.6
--- NOTE | 2023-10-27 12:11 | ED.GENADULT ---
HPI - General Adult General Chief complaint: Headache Stated complaint: Head Congestion Time Seen by Provider: 10/27/23 12:37 Source: patient Mode of arrival: ambulatory Limitations: no limitations History of Present Illness HPI narrative: 33 year-old assigned male at with no previous medical history presents to emergency department on 10/27/2023 with a complaint of headache and burning sensation around his sinuses. He states he feels pressure that radiates to his ears. He reports this complaint has been going on for 3 days since 10/24/2023. He states he has taken nothing to alleviate his symptoms. He denies fever, chills, night sweats, dizziness, lightheadedness, chest pain, palpitations, shortness of breath, trouble breathing, abdominal pain, nausea, vomiting, diarrhea, melena and hematochezia, changes in bowel movements, burning urination, urinary frequency, and changes in urination. Onset (ago): day(s) (3 days) Location: head and face (pressure around sinuses ) Exacerbating factors: none Associated symptoms: headaches Treatments prior to arrival: none Related Data Previous Rx's Medication Instructions Recorded ondansetron 4 mg disintegrating 4 mg PO Q8H 4 days #12 tabs 03/20/22 tablet sulfacetamide sodium 10 % eye drops 2 drp ophthalmic-Left Q4H #5 mL 12/24/22 cephalexin 500 mg capsule 500 mg PO QID 7 days #28 caps 02/27/23 naproxen 500 mg tablet 500 mg PO BID PRN pain 7 days #14 05/02/23 tabs doxycycline hyclate 100 mg tablet 100 mg PO BID 7 days #14 tabs 10/27/23 Allergies Allergy/AdvReac Type Severity Reaction Status Date / Time shellfish derived Allergy Intermediate HIVES Verified 10/27/23 12:14 [SHELLFISH DERIVED] Review of Systems Constitutional: Constitutional: Reports no additional constitutional complaints, Denies chills, Denies fever(s), Reports headache(s) and Denies night sweats Eyes: Eyes: Reports no additional eye complaints, Denies blurry vision, Denies change in vision, Denies diplopia, Denies eye discharge, Denies loss of vision and Denies eye pain ENT: Denies dizziness and Reports headache(s) Cardiovascular: Cardiovascular: Reports no additional cardiovascular complaints, Denies chest pain, Denies lightheadedness, Denies Loss of Consciousness and Denies dyspnea Respiratory: Respiratory: Reports no additional respiratory complaints and Denies dyspnea Gastrointestinal: Gastrointestinal: Reports no additional gastrointestinal complaints, Denies abdominal pain, Denies melena, Denies hematochezia, Denies change in bowel habits and Denies change in stool character Genitourinary: Genitourinary: Reports no additional male genitourinary complaints, Denies hematuria, Denies oliguria, Denies difficulty urinating, Denies dysuria, Denies urinary frequency, Denies urinary hesitancy, Denies urinary incontinence and Denies urinary urgency Musculoskeletal: Musculoskeletal: Reports no additional musculoskeletal complaints, Denies numbness and Denies tingling Neurologic: Denies dizziness, Reports headache(s), Denies loss of vision, Denies numbness and Denies tingling Psychiatric: Psychiatric: Reports no additional psychiatric complaints Endocrine: Endocrine: Reports no additional endocrine complaints Hematologic/Lymphatic: Hematologic/Lymphatic: Reports no additional hematologic/lymphatic complaints Allergic/Immunologic: Allergic/Immunologic: Reports no additional allergic/immunologic complaints PMFSH Past Medical History Attestation statement: The following information was validated with the patient. Source: old records reviewed and nursing notes reviewed Onset Date is defined in the Problem List Problems that require an onset date and time if occurred within 24 hrs of arrival to the ED Aortic Dissection and Rupture; Neurologic impairment; Cardiopulmonary Arrest; Endotracheal Intubation; Insertion or Replacement of Mechanical Circulatory Assist Device Medical History No known health problems Social History Social History Alcohol intake: never Advance Directives: No Physical Exam ED Vital Signs: Vital Signs - 24 hr 10/27/23 12:11 Temperature 97.8 F Pulse Rate 102 H Respiratory Rate 18 Blood Pressure 134/94 H Pulse Oximetry 96 Oxygen Delivery Method Room Air BMI result Body Mass Index 38.6 Const General: cooperative, no acute distress, alert and awake Nutritional Appearance: well nourished Orientation/consciousness: patient oriented x3 Limitations: no limitations HENMT Head: Yes normal to inspection and Yes atraumatic Ears: hearing grossly normal bilaterally and external ears normal General nose exam: Normal external nose present, no nasal discharge noted and no epistaxis Face and sinus: Yes sinus tenderness Mouth: Normal oral and palatal mucosa present, no drooling and no muffled voice Eyes General: appearance normal, both eyes and all related structures Periorbital: periorbital findings normal Eyelids: Yes eyelids normal Conjunctivae: conjunctivae normal Pupils: Equal, round and reactive pupils present EOM: EOMs intact bilaterally Neck Neck: Yes normal visual inspection, Yes full ROM and Yes no lymphadenopathy Chest Chest palpation & inspection: normal inspection of the chest Resp Effort & Inspection: normal respiratory effort and able to speak in complete sentences GI Inspection: Yes normal to inspection Neuro General: patient oriented x3 and moves all extremities Cranial nerves: Yes Equal, round and reactive pupils present Cognition (Neuro): normal cognition Motor exam (neuro): 5/5 motor strength present throughout Sensory Exam: Normal double simultaneous stimulation for sensation Coordination: [id number]-ut-[id number] test normal Extrem General: Yes normal to inspection, Yes full ROM and Yes capillary refill normal Psych Appearance: grossly normal Mental Status: mental status grossly normal Affect: normal affect Attitude: cooperative Thought process: Normal thought process present Thought content: Normal thought content present Insight: Good insight present (Psych) Course Course Course Narrative: RME:?33 yo male here with headache and sinus pain. Headache is 8/10 intermittent and located to bilateral temples. Reports pain over right sinus described as burning. denies recent illness. denies sick contacts. Denies fever, chills, vision changes, cp, SOB. plan for serology, labs. Full HPI, ROS and PE to be performed by the primary ED provider. Medical Decision Making Medical Decision Making [facility] Narrative: Patient is a 33 year old assigned male at with no reported medical history presenting to the emergency department today with a headache and sinus pain. Patient's physical exam was as noted in the physical exam portion of this note. Patient's blood work was unremarkable. Patient's COVID-19 and influenza tests were negative. I explained my physical exam findings as well as all test results to the patient. I answered all questions asked by the patient. I stressed the importance of the patient taking his medication as prescribed. I stressed the importance of the patient following up with his primary care provider. I stressed the importance of the patient returning to the emergency department immediately if his symptoms were to worsen or if he were to develop any dizziness, shortness of breath, difficulty breathing, chest pain, blurry vision, loss of vision, nausea, vomiting, abdominal pain, fever, chills, back pain, or any other complaints. Patient verbalized agreement and understanding with this treatment plan and discharge. Differential Diagnosis Differential Diagnoses: The differential diagnosis associated with the presentation includes Headache Sinusitis Admission/Observation Consideration of admission/observation: Escalation of care including admission/observation considered Patient would have been admitted to the hospital had his work up had any findings where hospital admission was appropriate and his clinical presentation warranted hospital admission. Lab Data [facility] Lab Attestation statement: I reviewed the patient's lab results. My interpretation of these results are in the [facility] Rationale portion of this note. 10/27/23 12:21 10/27/23 12:21 Labs: Lab Results 10/27/23 Range/Units 12:21 WBC 8.6 (4.8-10.8) X10*3/uL RBC 5.20 (4.60-5.80) X10*6/uL Hgb 14.3 (14.0-18.0) g/dl Hct 42.6 (42.0-52.0) % MCV 81.9 (80.0-98.0) fL MCH 27.5 (27.0-33.0) pg MCHC 33.6 (31.0-36.0) g/dl RDW 13.3 (11.0-16.0) % Plt Count 294 (160-400) X10*3/uL MPV 8.9 L (9.4-12.4) fL Immature Gran % (Auto) 0.3 (0.0-0.4) % Neut % (Auto) 54.7 (45-73) % Lymph % (Auto) 34.5 (20-40) % [place] % (Auto) 7.5 (2-11) % Eos % (Auto) 2.4 (0-4) % Baso % (Auto) 0.6 (0-2) % Lymph # (Auto) 3.0 (1.2-4.9) X10*3/uL [place] # (Auto) 0.7 (0.1-1.2) X10*3/uL Eos # (Auto) 0.2 (0.0-0.4) X10*3/uL Baso # (Auto) 0.1 (0.0-0.2) X10*3/uL Abs Immat Gran (auto) 0.03 (0.00-0.03) X10*3/uL Absolute Neuts (auto) 4.7 (2.0-8.3) x10*3/uL Absolute Nucleated RBC 0.000 (0.0-0.012) X10*3/uL Nucleated RBC % (auto) 0.0 (0.0-0.2) /100WBC Sodium 137 (135-145) mmol/L Potassium 3.8 (3.3-5.1) mmol/L Chloride 104 (96-108) mmol/L Carbon Dioxide 26 (22-29) mmol/L Anion Gap 11 L (12-20) BUN 18 H (9-16) mg/dL Creatinine 1.13 (0.5-1.4) mg/dL Estim Creat Clear Calc 126.7 Estimated GFR > 60 Random Glucose 84 (60-115) mg/dL Calcium 9.7 (8.4-10.2) mg/dL Magnesium 2.0 (1.6-2.6) mg/dL COVID-19 (IDALIA) Negative (Negative) COVID-19 Clin Com See Note Influenza Type A (HIALY) Negative (Negative) Influenza Type B (HAILY) Negative (Negative) Influenza A & B Note See Note Prescription Management I considered prescription management with: Antibiotic (patient prescribed an antibiotic for his sinusitis) Discharge Plan Discharge Clinical Impression: Sinusitis Patient Disposition: Home, Self-Care Instructions: Sinusitis (ED) Additional Instructions: Follow up with your primary care provider. Return to the emergency department immediately if your symptoms worsen or if you develop any dizziness, shortness of breath, difficulty breathing, chest pain, blurry vision, loss of vision, nausea, vomiting, abdominal pain, fever, chills, back pain, or any other complaints. Prescriptions: New doxycycline hyclate 100 mg tablet 100 mg PO BID 7 Days Qty: 14 0RF No Action ondansetron 4 mg tablet,disintegrating 4 mg PO Q8H 4 Days Qty: 12 0RF sulfacetamide sodium 10 % drops 2 drp ophthalmic-Left Q4H Qty: 5 0RF naproxen 500 mg tablet 500 mg PO BID PRN (Reason: pain) 7 Days Qty: 14 0RF cephalexin 500 mg capsule 500 mg PO QID 7 Days Qty: 28 0RF Referrals: Yue Angulo MD [Primary Care Provider] - Stand Alone Forms: Work/School Release Interventions: ED Discharge Assessment Last Done: 10/27/23 13:16 Discharge Date/Time: 10/27/23 13:16 Print Language: Guyanese
[2023-10-27 12:25] LABS: MANUAL DIFF FLAG NO
[2023-10-27 12:26] LABS: Basophils Absolute Auto 0.1 X10*3/uL (0.0-0.2); Basophils Percent Auto 0.6 % (0-2); Eosinophils Absolute Auto 0.2 X10*3/uL (0.0-0.4); Eosinophils Percent Auto 2.4 % (0-4); Hematocrit 42.6 % (42.0-52.0); Hemoglobin 14.3 g/dl (14.0-18.0); Imm Gran Abs Auto 0.03 X10*3/uL (0.00-0.03); Imm Gran Pct Auto 0.3 % (0.0-0.4); Lymphocytes Percent Auto 34.5 % (20-40); Mean Corpuscular HGB Conc 33.6 g/dl (31.0-36.0); Mean Corpuscular Hemoglobin 27.5 pg (27.0-33.0); Mean Corpuscular Volume 81.9 fL (80.0-98.0); Mean Platelet Volume 8.9 fL (9.4-12.4); Monocytes Absolute Auto 0.7 X10*3/uL (0.1-1.2); Monocytes Percent Auto 7.5 % (2-11); Neutrophils Absolute Auto 4.7 x10*3/uL (2.0-8.3); Neutrophils Percent Auto 54.7 % (45-73); Platelet Count 294 X10*3/uL (160-400); Red Cell Distribution Width 13.3 % (11.0-16.0); White Blood Count 8.6 X10*3/uL (4.8-10.8)
[2023-10-27 12:40] LABS: Anion Gap 11 (12-20); Blood Urea Nitrogen 18 mg/dL (9-16); Calcium 9.7 mg/dL (8.4-10.2); Carbon Dioxide 26 mmol/L (22-29); Chloride 104 mmol/L (96-108); Creatinine Clr Calc Pharmacy 126.7; Estimated Glomerular Filt Rate > 60; Glucose Random 84 mg/dL (60-115); Potassium 3.8 mmol/L (3.3-5.1); Sodium 137 mmol/L (135-145)
[2023-10-27 12:44] LABS: COVID-19 Test Negative (Negative); IDNOW Serial# 08D9AD1C; IDNOW Serial# 152EDE1D; Influenza A Negative (Negative); Influenza B2 Negative (Negative)
== END 2023-10-27 13:16 | disposition home or self-care (01) ==
PROVIDERS: Physician Assistant Medical; Emergency Provider Emergency Medicine; PCP Internal Medicine
DX: J32.9 Chronic sinusitis, unspecified (principal); Z11.52 Encounter for screening for COVID-19
CPT/HCPCS: 80048; 83735; 85025; 87502; 87635; 99283

== ENCOUNTER 2023-12-09 11:51 | Emergency (ER) | payer MEDICAID, SELFPAY ==
[2023-12-09 12:05] VITALS: BP 137/91; PULSE 86; RESP 16; TEMP 36.7; O2SAT 98; BMI 36.5
--- NOTE | 2023-12-09 12:06 | ED_ITS ---
HPI - General Adult General Stated complaint: Sore throat Time Seen by Provider: 12/09/23 11:59 Source: patient Mode of arrival: ambulatory Limitations: no limitations History of Present Illness HPI narrative: 33-year-old male presents with complaints of difficulty swallowing for the past 2-3 months, patient reports he has a scheduled appointment with GI on December 13. He reports he told his PCP feels having difficulty swallowing and they told him to come into the emergency department. He tells me he has been eating and drinking however less than usual due to the discomfort with swallowing. He tells me it is not pain it is more a discomfort in difficulty with swallowing. In the room patient is eating cheese its without difficulty. No nausea, vomiting, abdominal pain, fevers, chills, chest pain, shortness of breath, headache, vision changes, dizziness and weakness. There have been no episodes of choking or changes in voice Related Data Previous Rx's Medication Instructions Recorded ondansetron 4 mg disintegrating 4 mg PO Q8H 4 days #12 tabs 03/20/22 tablet sulfacetamide sodium 10 % eye drops 2 drp ophthalmic-Left Q4H #5 mL 12/24/22 cephalexin 500 mg capsule 500 mg PO QID 7 days #28 caps 02/27/23 naproxen 500 mg tablet 500 mg PO BID PRN pain 7 days #14 05/02/23 tabs doxycycline hyclate 100 mg tablet 100 mg PO BID 7 days #14 tabs 10/27/23 Allergies Allergy/AdvReac Type Severity Reaction Status Date / Time shellfish derived Allergy Intermediate HIVES Verified 10/27/23 12:14 [SHELLFISH DERIVED] Review of Systems Review of Systems: Yes all other systems are reviewed and are negative PMFSH Past Medical History Attestation statement: The following information was validated with the patient. Source: old records reviewed and nursing notes reviewed Medical History No known health problems Social History Social History Alcohol intake: never Physical Exam ED Vital Signs: vss Appearance: Alert.? Oriented X3.? No acute distress.? Head: Normocephalic, atraumatic, no step-offs or deformities Eyes: Pupils equal, round and reactive to light.? ENT: Pharynx normal.? Patent airway. No abnormalities and tonsils, no erythema, warmth, exudate, abscess. Uvula midline. Speaking in full sentences controlling secretions well. Eating solids and liquids without difficulty. Neck: Normal inspection.? Neck supple.? CVS: Normal heart rate and rhythm.? Pulses normal.? Respiratory: No respiratory distress.? Breath sounds normal.? Abdomen: Soft and nontender.? Skin: Skin warm and dry.? Normal skin color.? Normal skin turgor.? Extremities: No lower extremity edema.? No calf ttp. 5/5 strength to bilateral upper and lower extremities Neuro: Oriented X 3.? No motor deficit.? No sensory deficit. CN 2-12 intact Course Reevaluation(s) Reevaluation #1: Strep and viral test pending. Will call him if positive. Educated patient on diagnosis and treatment plan, answered all question, patient verbalizes understanding. At this time patient will be discharged home, advised to return with new or worsening symptoms. Educated on worrisome signs and symptoms and when to return. At this time I feel comfortable discharge home. Time: 12:10 Medical Decision Making Medical Decision Making MDM Narrative: 33-year-old male presents with difficulty swallowing for the past 2 3 months, however eating upon triage without difficulty. Physical exam benign. This is likely dysphagia versus anxiety versus bolus hystericus versus strictures. Unlikely acute threat to airway, no signs of respiratory distress. Unlikely viral illness however will rule out. Unlikely strep throat. No signs of peritonsillar abscess, epiglottitis, retropharyngeal abscess. P.o. trial done upon arrival patient eating and drinking without difficulty. No indication for labs or imaging at this time. Patient has follow-up with GI. Educated patient on diagnosis and treatment plan, answered all question, patient verbalizes understanding. At this time patient will be discharged home, advised to return with new or worsening symptoms. Educated on worrisome signs and symptoms and when to return. At this time I feel comfortable discharge home. Offered reassurance and told him to stick to a bland/liquid diet. Differential Diagnosis Differential Diagnoses: The differential diagnosis associated with the presentation includes This is likely dysphagia versus anxiety versus bolus hystericus versus strictures. Unlikely acute threat to airway, no signs of respiratory distress. Unlikely viral illness however will rule out. Unlikely strep throat. No signs of peritonsillar abscess, epiglottitis, retropharyngeal abscess. Admission/Observation Consideration of admission/observation: Escalation of care including admission/observation considered No indication Tests considered The following testing was considered but not selected: Considered imaging however patient tolerating p.o. in the department without difficulty. Discharge Plan Discharge Clinical Impression: Difficulty in swallowing Patient Disposition: Home, Self-Care Instructions: Dysphagia (ED) Additional Instructions: Take your medications as prescribed. If you were prescribed antibiotics today, it is important that you take your medication to their entirety, do not skip any doses, do not finish them early. Follow-up with your primary care provider this week. Return to the emergency department with new or worsening symptoms. Such as fevers, chills, chest pain, shortness of breath, nausea, vomiting, dizziness, headache, vision changes, lethargy In case of emergency call 911 Please eat clear liquids. Return if you can not tolerate fluids, or liquids. Or if you stroke. Or with any new or worsening symptoms. Make sure you attend your GI apt on 12/14/23 [place] annie medicamentos seg?n lo recetado. Si hoy te recetaron antibi?ticos, es importante que tomes tu medicaci?n en young totalidad, no te saltes ninguna dosis, no las termines antes de tiempo. Craig un seguimiento con young proveedor de atenci?n primaria esta semana. Regrese al departamento de emergencias si los s?ntomas son nuevos o empeoran. [place] fiebre, escalofr?os, dolor de pecho, dificultad para respirar, n?useas, v?mitos, mareos, dolor de olivia, cambios en la visi?n, letargo. En jemal de emergencia llame al 911. Por favor coma l?quidos dwight. Regrese si no puede tolerar l?quidos o l?quidos. O si te acaricias. O con cualquier s?ntoma nuevo o que empeore. Aseg?rate de asistir a tu GI apto el 02/11/24 Prescriptions: No Action ondansetron 4 mg tablet,disintegrating 4 mg PO Q8H 4 Days Qty: 12 0RF sulfacetamide sodium 10 % drops 2 drp ophthalmic-Left Q4H Qty: 5 0RF naproxen 500 mg tablet 500 mg PO BID PRN (Reason: pain) 7 Days Qty: 14 0RF doxycycline hyclate 100 mg tablet 100 mg PO BID 7 Days Qty: 14 0RF cephalexin 500 mg capsule 500 mg PO QID 7 Days Qty: 28 0RF Referrals: [facility] [place] [facility] [Provider Group] - 1 day Yue Angulo MD [Primary Care Provider] - 2 days
[2023-12-09 12:51] LABS: IDNOW Serial# 08D9AD1C; Strep A Nucleic Acid Negative (Negative)
[2023-12-09 12:59] LABS: Influenza A PCR NEGATIVE (Negative); Influenza B PCR NEGATIVE (Negative); Resp Syncy Virus RNA Qual PCR NEGATIVE (Negative); SARS COV2 PCR INHOUSE NEGATIVE (Negative)
== END 2023-12-09 12:31 | disposition home or self-care (01) ==
PROVIDERS: Physician Assistant; Emergency Provider Emergency Medicine; PCP Internal Medicine
DX: J02.9 Acute pharyngitis, unspecified (principal); R13.10 Dysphagia, unspecified; Z11.52 Encounter for screening for COVID-19; Z20.822 Contact with and (suspected) exposure to COVID-19; Z79.899 Other long term (current) drug therapy
CPT/HCPCS: 0241U; 87651; 99283

== ENCOUNTER 2023-12-14 11:37 | Outpatient (AMB) | payer MEDICAID, SELFPAY ==
--- NOTE | 2023-12-14 11:42 | MHC.OFFVIS ---
Intake Vital Signs 12/14/23 11:55 Height 5 ft 11 in Weight 270 lb BMI 37.7 BP 120/76 Blood Pressure Location Lt brachial Position Sitting Pulse 78 Intake Visit Reasons: Dysphagia, Acid Reflux Intake Note: Patient new consult for acid reflux and dysphagia. Patient cc: acid reflex with some food, abdominal bloating, and constipation he do BM every 2 or 3 days, LLQ pain and swallowing problems even with his saliva. Denies any other GI issues. 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 Episodes of choking as well as unable to swallow his saliva at times. Nothing done in ED -, he was told to be seen by GI in 1 day Appetite is not very good- He was having a lot of acid reflux- pepcid 1-2 x QD-helpful- rice seems to stick- Sometimes constipated- does not follow a good diet- No N/V- abdominal pain, fever or chills hematemesis or hematochezia [facility] Medical History (Updated 12/14/23 @ 12:37 by Aleisha Fountain PA-C) No known health problems Family History Father Diabetes Mother Skin cancer Social History (Updated 12/14/23 @ 12:01 by Aleisha Fountain PA-C) Household Members: Spouse and Family Alcohol intake: current Alcohol intake frequency: holidays/special occasions only Current occupational status: employed Current occupation: [employer] Review of Systems Const All systems reviewed & are unremarkable except as noted in HPI and below ENT Reports dysphagia GI Reports dysphagia and Reports heartburn Physical Exam Vital Signs: Last Vital Signs Pulse 78 12/14/23 11:55 BP 120/76 12/14/23 11:55 BMI result Body Mass Index 37.7 Const General: anxious GI Palpation (GI): Soft to palpation Results Reviewed Results Reviewed: Reviewed ED note Assessment & Plan Assessment & Plan (1) Difficulty in swallowing: Comment: Dysphagia, question globus may be functional, however will get EGD possible dil, if booking out far will get barium swallow. No odynophagia, no fevers no upper respiratory symptoms Code(s): R13.10 - Dysphagia, unspecified (2) Dysphagia: Code(s): R13.10 - Dysphagia, unspecified (3) Constipation: Code(s): K59.00 - Constipation, unspecified Plan: Maintain high-fiber diet Fiber supplement Better nutrition Plan EGD- poss-dil Medications: New famotidine 40 mg PO BID 30 days 60 tabs 5RF Patient Instructions: 33-year-old male dysphagia, history of acid reflux improved with Pepcid He will continue Pepcid-any worsening of symptoms to include unable to swallow secretions return to ED [place] Instructed to eat slowly and chew his food well avoid culprits such as rice/letter Scheduled for EGD possible dilation Discussed procedure, rare risks need for escorted due to anesthesia is accompanying him and interpreting for him there are no barriers to understanding identified Also educated on maintaining high-fiber diet and fiber supplements-for constipation Encouraged to call with any questions or concerns Coding Level of Care Code New Pt Level 3 (39376) Diagnoses Difficulty in swallowing R13.10 Constipation K59.00 Time Spent (min) 30 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
[2023-12-14 11:55] VITALS: BP 120/76; PULSE 78; BMI 37.7
== END 2023-12-14 13:27 | disposition home or self-care (01) ==
PROVIDERS: PCP Internal Medicine; Visit Provider Physician Assistant
DX: R13.10 Dysphagia, unspecified (principal); K59.00 Constipation, unspecified
CPT/HCPCS: 99203

== ENCOUNTER → 2023-12-14 11:37 | Outpatient (BNVA) | payer MEDICAID, SELFPAY | PROVIDERS: PCP Internal Medicine; Visit Provider Physician Assistant | DX: K59.00 Constipation, unspecified (principal); R13.10 Dysphagia, unspecified | CPT/HCPCS: 99212 ==

== ENCOUNTER 2023-12-15 12:02 | Day surgery (SDC) | payer MEDICAID, SELFPAY ==
[2023-12-15 14:09] VITALS: BMI 37.0
--- NOTE | 2023-12-15 14:21 | HO.ANESPROP2 ---
[facility] Active Problems Active Problems: All Active Problems (Updated 12/14/23 @ 12:37 by Aleisha Fountain PA-C) Constipation (Acute) Dysphagia (Acute) COVID-19 (Acute) Past Medical History Medical History No known health problems Family History Family History Father Diabetes Mother Skin cancer Surgical History Surgical History (Updated 12/15/23 @ 14:02 by Patricia Rboerto RN) No pertinent past surgical history Social History Social History (Updated 12/14/23 @ 12:01 by Aleisha Fountain PA-C) Household Members: Spouse and Family Alcohol intake: current Alcohol intake frequency: holidays/special occasions only Advance Directives: No Advance Directives Information Provided: Yes Current occupational status: employed Current occupation: [employer] Meds Allergies Allergy/AdvReac Type Severity Reaction Status Date / Time shellfish derived Allergy Intermediate HIVES Verified 12/14/23 11:40 [SHELLFISH DERIVED] Home Medications Medication Instructions Recorded Confirmed Last Taken Type omeprazole 20 mg capsule,delayed 20 mg PO DAILY 12/14/23 12/15/23 Unknown History release Exam Height,Weight and Vital Signs: Height 5 ft 11 in Weight 120.202 kg Airway Mallampati Class: II TM Dist: >3cm Neck ROM: Full Heart: rrr Lungs: cta
[2023-12-15 14:23] VITALS: BP 148/91; PULSE 83; RESP 16; TEMP 36.8; O2SAT 95
--- NOTE | 2023-12-15 14:43 | MHC.SHP ---
Pre-Procedural Eval Section A - 24 Hr Update-Section A only Date of Service: 12/15/23 Section B - Complete if H&P > 30 days Chief Complaint: Dysphagia, unspecified Relevant Family History (Specify if Yes): No Relevant Social History: None Present Medications: see Short Stay Collaborative assessment Medical History: Significant History (gerd) History of Previous Operations: No relevant previous surgery Allergies: Allergies Allergy/AdvReac Type Severity Reaction Status Date / Time shellfish derived Allergy Intermediate HIVES Verified 12/14/23 11:40 [SHELLFISH DERIVED] Review of Systems Sugical H&P ROS: Negative: Constitution, Cardiovascular, Respiratory, Neurological, Psychiatric, Hem-Onc, Allergic/Immunologic, Gastrointestinal, Genitourinary, Musculoskeletal, Integumentary, Endocrine and Eyes/Ears/Nose/Throat Exam Surgical H&P Exam: Normal: HEENT, Normal: Heart, Normal: Lungs, Normal: Extremities, Normal: Abdomen, Normal: Skin and Normal: Neurological Plan Diagnosis/Plan: Unchanged I have reviewed the history and physical and performed a pertinent physical examination on my patient. No changes have occurred unless specified. Time Spent With Patient Time: Total time managing care of this patient today ____ minutes.
--- NOTE | 2023-12-15 14:43 | W.PM.OPN ---
Operative Note Operative Note Date of Service: 12/15/23 Narrative: Procedure Description: EGD Indication: dysphagia Anesthesia: MAC FLEXIBLE TRANSORAL UPPER GASTROINTESTINAL ENDOSCOPY UPPER ENDOSCOPY Consent: Indications for the procedure and potential complications of bleeding, perforation, reaction to medications and missed diagnosis were discussed with the patient and informed consent was obtained. Instrument: Olympus GIF H 190 J mid size upper endoscope Monitoring: Vital signs and clinical assessment, continuous EKG monitoring, Pulse oximetry, Carbon Dioxide monitoring and blood pressure monitoring were done throughout the procedure. Procedure: The patient was placed in the left lateral decubitis position and pre-procedure medications were administered and a bite block was placed. The endoscope was inserted into the mouth and advanced under direct vision to the third part of duodenum. A careful inspection was made as the upper endoscope was withdrawn including a retroflexed examination of the proximal stomach; Findings and interventions are described below. Findings: Larynx:normal Esophagus: GE junction at 40 cm, diaphragm hiatus at 40 cm, some tongues of inflammed salmon pink tissue, bx taken to r/o barretts, bx taken from distal and proximal esophagus. Balloon dilation to 20 mm at LES and UES, no tears seen Stomach: patchy erythema . Biopsies were obtained. Grade 2 flap valve on retroflexed examination of the cardia. 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
[2023-12-15 15:09] VITALS: BP 118/68; PULSE 107; RESP 16; TEMP 36.2; O2SAT 94
[2023-12-15 15:24] VITALS: BP 118/71; PULSE 96; RESP 14; O2SAT 95
[2023-12-15 15:39] VITALS: BP 123/81; PULSE 88; RESP 15; O2SAT 96
[2023-12-15 15:54] VITALS: BP 125/86; PULSE 82; RESP 14; TEMP 36.2; O2SAT 97
== END 2023-12-15 15:58 | disposition home or self-care (01) ==
PROVIDERS: PCP Internal Medicine; Visit Provider Internal Medicine Gastroenterology
PROC: 0DJ08ZZ Inspection of Upper Intestinal Tract, Via Natural or Artificial Opening Endoscopic (ICD-10-PCS; CPT 43235; principal; 2023-12-15 15:10)
DX: K21.9 Gastro-esophageal reflux disease without esophagitis (principal); K29.80 Duodenitis without bleeding; K20.80 Other esophagitis without bleeding; K44.9 Diaphragmatic hernia without obstruction or gangrene; Z79.899 Other long term (current) drug therapy
CPT/HCPCS: 43249; 43239; 88305; 88313; 88342; C1726; J2704

== ENCOUNTER → 2023-12-15 12:02 | Outpatient (BNV) | payer MEDICAID, SELFPAY | PROVIDERS: PCP Internal Medicine; Visit Provider Internal Medicine Gastroenterology | DX: K20.90 Esophagitis, unspecified without bleeding (principal); K29.90 Gastroduodenitis, unspecified, without bleeding | CPT/HCPCS: 43239; 43249 ==

== ENCOUNTER 2023-12-29 05:58 | Outpatient (REF) | payer MEDICAID, SELFPAY ==
--- NOTE | ~2023-12-29 | XR_ITS ---
EXAMINATION: XR SHOULDER, LEFT CLINICAL INFORMATION: Pain in left shoulder. COMPARISON: 09/03/2019 TECHNIQUE: 3 views of the left shoulder. FINDINGS: Acromioclavicular and glenohumeral alignment is preserved. Bone mineralization is normal. Previously identified lucency of the distal clavicle is less conspicuous, possibly related to technical differences, and was previously felt to possibly represent early osteolysis, possibly secondary to repetitive microtrauma. XR/XR shoulder LT min 2V IMPRESSION: Previously identified lucency of the distal clavicle is less conspicuous, possibly related to technical differences, and was previously felt to possibly represent early osteolysis, possibly secondary to repetitive microtrauma. Correlation with clinical exam recommended.
== END 2023-12-29 05:59 | disposition home or self-care (01) ==
LOC: HO.HOSX 05:58
PROVIDERS: Visit Provider Physician Assistant
DX: M75.22 Bicipital tendinitis, left shoulder (principal)
CPT/HCPCS: 73030; 99212

== ENCOUNTER 2023-12-29 14:50 | Outpatient (AMB) | payer MEDICAID, SELFPAY ==
--- NOTE | 2023-12-29 14:57 | MHC.OFFVIS ---
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 Patient reports that he has pain in his shoulder with lifting items. States pain started about 1-2 months ago he lifted heavy furniture. He has had his shoulder at rest and is doing light duty at work making his shoulder feel better. States his light duty status ends today and is afraid to return to full duty and increasing his shoulder pain. 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 He states he was lifting heavy furniture, about 1 month ago when he felt a sharp pain in the anterior aspect of the left shoulder . He currently states he has pain in his shoulder with lifting items or pushing. He has not had any physical therapy in the past. He finds relief with ibuprofen however his pain comes back after working. He has discontinued taking ibuprofen due to an upcoming surgery. He has been resting and performing light duty at work with benefits. He reports his light duty status ends today and is afraid to return full duty and increasing his shoulder pain. [facility] Medical History (Updated 12/29/23 @ 15:29 by Nabeel Jacobs PA-C) No known health problems Surgical History (Updated 12/27/23 @ 11:00 by Jana Liu) History of esophagogastroduodenoscopy (EGD) No pertinent past surgical history Family History Father Diabetes Mother Skin cancer Social History (Updated 12/14/23 @ 12:01 by Aleisha Fountain PA-C) Household Members: Spouse and Family Alcohol intake: current Alcohol intake frequency: holidays/special occasions only Patient Tobacco Use Status: Never used Tobacco Current occupational status: employed Current occupation: [employer] Review of Systems Const All systems reviewed & are unremarkable except as noted in HPI and below Physical Exam Const General: cooperative, healthy appearing, comfortable, no acute distress, well developed and alert Orientation/consciousness: patient oriented x3 HEENT Head: Yes normal to inspection, Yes normocephalic and Yes atraumatic Eyes General: appearance normal, both eyes and all related structures Resp Effort & Inspection: normal respiratory effort and able to speak in complete sentences Cardio Rate: regular rate Peripheral pulses: Peripheral pulses 2+ throughout GI Palpation (GI): Soft to palpation Skin Lesions: no lesions Rashes: no rashes Neuro General: patient oriented x3 Extrem Other: Left shoulder normal to inspection. Tenderness along the proximal bicep tendon of the shoulder. Forward flexion to 175, external rotation to 90, internal rotation to S1. 5/5 RTC strength. Negative Blandon and cross body abduction. NVI. Results Reviewed Results Reviewed: Xrays were obtained in the office today and personally reviewed by me of the left shoulder negative for acute or chronic abnormalities. Assessment & Plan Assessment & Plan (1) Biceps tendonitis on left: Code(s): M75.22 - Bicipital tendinitis, left shoulder Plan We discussed options which include PT, NSAIDs and injections. The patient will defer on the injection today and proceed with PT and NSAIDs. If symptoms persist, the patient will contact me for an injection, otherwise, PRN. Orders: Orders XR shoulder LT min 2V Today M25.512 - Pain in left shoulder PT Evaluation and Treatment Today M75.22 - Bicipital tendinitis, left shoulder Patient Instructions: Scribed for Nabeel Jacobs PA-C, by Masoud Gaxiola medical technologist blood bank, on 12/29/2023 at 3:00 PM EST. INabeel PA-C, have personally reviewed and agree with the information entered by the scribe. Coding Level of Care Code New Pt Level 3 (12061) Diagnoses Biceps tendonitis on left M75.22
== END 2023-12-29 15:41 | disposition home or self-care (01) ==
PROVIDERS: PCP Internal Medicine; Visit Provider Physician Assistant
DX: M75.22 Bicipital tendinitis, left shoulder (principal)
CPT/HCPCS: 99203

== ENCOUNTER 2024-01-10 14:47 | Outpatient (AMB) | payer MEDICAID, SELFPAY ==
--- NOTE | 2024-01-10 14:53 | MHC.OFFVIS ---
Intake Intake Visit Reasons: s/p egd Allergies shellfish derived [SHELLFISH DERIVED] Allergy (Intermediate, Verified 12/29/23 14:58) HIVES HPI HPI Comments History of Present Illness Details A 33 y/o male abel dysphagia and acid reflux f/u after some difficulty after procedure- finally began pantoprazole 40 BID- He did not stop to have HP test-- he is now feeling well- he does not want to stop He is finally feeling well he is here today with his and she said he has been much better He has no other GI or general complaints Appetite is very good Bowels have been normal No nausea, vomiting fever, chills or abdominal pain PFSH Medical History (Updated 01/12/24 @ 13:17 by Aleisha Fountain PA-C) No known health problems Surgical History (Updated 12/27/23 @ 11:00 by Jana Liu) History of esophagogastroduodenoscopy (EGD) No pertinent past surgical history Family History Father Diabetes Mother Skin cancer Social History (Updated 12/14/23 @ 12:01 by Aleisha Fountain PA-C) Household Members: Spouse and Family Alcohol intake: current Alcohol intake frequency: holidays/special occasions only Patient Tobacco Use Status: Never used Tobacco Current occupational status: employed Current occupation: [employer] Physical Exam Const General: cooperative, healthy appearing, comfortable and no acute distress Orientation/consciousness: patient oriented x3 Limitations: language barrier Resp Effort & Inspection: normal respiratory effort and able to speak in complete sentences Neuro General: patient oriented x3 Psych Appearance: grossly normal and well kempt Mental Status: mental status grossly normal Speech and movement: Normal speech and movement present Affect: normal affect Attitude: cooperative Thought process: Normal thought process present Thought content: Normal thought content present Results Reviewed Results Reviewed: FL/FL barium swallow IMPRESSION: 1. Moderate cricopharyngeal achalasia. 2. Significant gastroesophageal dysmotility. 3. Short segment narrowing of the GE junction likely representing moderate achalasia. Cannot definitively exclude a short segment benign stricture. 4. Mildly thickened gastric rugal folds possibly representing gastritis. PLAN: high dose PPI if ongoing sx then manometry if suspicion for celiac then check serology and gluten free diet GERD precautions Assessment & Plan Assessment & Plan (1) Dysphagia: Comment: No dysphagia, Code(s): R13.10 - Dysphagia, unspecified Plan: Monitor for any further symptoms Orders: Orders H Pylori Breath Test 1 Month A04.8 - Other specified bacterial intestinal infections Medications: New sucralfate use for 2 weeks prior to test 1 g (10 mL) PO QIDACHS 4 weeks 420 mL 0RF Patient Instructions: 33-year-old male follows up after recent barium swallow followed by EGD Reviewed procedure report, pathology recommendation Currently doing very well pantoprazole 40 mg b.i.d.-he will continue Will see him back for progress If symptoms proceed will consider manometry Encouraged to call with questions or concerns In his present agree with the plan Coding Level of Care Code Est Pt Level 3 (73578) Diagnoses Dysphagia R13.10 Time Spent (min) 25
== END 2024-01-10 15:41 | disposition home or self-care (01) ==
PROVIDERS: PCP Internal Medicine; Visit Provider Physician Assistant
DX: R13.10 Dysphagia, unspecified (principal)
CPT/HCPCS: 99213

== ENCOUNTER → 2024-01-10 14:47 | Outpatient (BNVA) | payer MEDICAID, SELFPAY | PROVIDERS: PCP Internal Medicine; Visit Provider Physician Assistant | DX: K21.9 Gastro-esophageal reflux disease without esophagitis (principal); R13.10 Dysphagia, unspecified | CPT/HCPCS: 99212 ==

== ENCOUNTER 2024-01-26 15:25 | Outpatient (AMB) | payer MEDICAID, SELFPAY ==
--- NOTE | 2024-01-26 15:39 | A.OFFVIS_ITS ---
Intake Intake Visit Reasons: ov-RTC tendinitis and impingement left shld Intake Note: Kyler a 33 year old right hand dominant male presents today for a follow up of left shoulder. Patient reports that no change in his symptoms from last visit. He has been attending PT and feels an increase of pain after his sessions. 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 He continues to have pain in his shoulder as the last visit. He also c/o discomfort with overhead kassandra maria g. He reports he has been attending physical therapy which causes soreness in his shoulder. [facility] Medical History (Updated 01/12/24 @ 13:17 by Aleisha Fountain PA-C) No known health problems Surgical History (Updated 12/27/23 @ 11:00 by Jana Liu) History of esophagogastroduodenoscopy (EGD) No pertinent past surgical history Family History Father Diabetes Mother Skin cancer Social History (Updated 12/14/23 @ 12:01 by Aleisha Fountain PA-C) Household Members: Spouse and Family Alcohol intake: current Alcohol intake frequency: holidays/special occasions only Patient Tobacco Use Status: Never used Tobacco Current occupational status: employed Current occupation: [employer] Review of Systems Const All systems reviewed & are unremarkable except as noted in HPI and below Physical Exam Const General: cooperative, healthy appearing, comfortable, no acute distress, well developed and alert Orientation/consciousness: patient oriented x3 HEENT Head: Yes normal to inspection, Yes normocephalic and Yes atraumatic Eyes General: appearance normal, both eyes and all related structures Resp Effort & Inspection: normal respiratory effort and able to speak in complete sentences Cardio Rate: regular rate Peripheral pulses: Peripheral pulses 2+ throughout GI Palpation (GI): Soft to palpation Skin Lesions: no lesions Rashes: no rashes Neuro General: patient oriented x3 Extrem Other: Left shoulder normal to inspection. Tenderness along the proximal bicep tendon of the shoulder. Forward flexion to 175, external rotation to 90, internal rotation to S1. 5/5 RTC strength. Negative Blandon and cross body abduction. NVI. Assessment & Plan Assessment & Plan (1) Biceps tendonitis on left: Code(s): M75.22 - Bicipital tendinitis, left shoulder Plan I stress importance of working with physical therapy to RTC strengthening and retraining shoulder girdle. He will continue current work restriction until I see him back in 6 weeks, sooner if needed. Patient Instructions: Scribed for Nabeel Jacobs PA-C, by Masoud Gaxiola diagnostic medical sonographer, on 01/26/2024 at 3:30 PM EST. I, Nabeel Jacobs PA-C, have personally reviewed and agree with the information entered by the scribe. Coding Level of Care Code Est Pt Level 3 (21335) Diagnoses Biceps tendonitis on left M75.22
== END 2024-01-26 16:16 | disposition home or self-care (01) ==
PROVIDERS: PCP Internal Medicine; Visit Provider Physician Assistant
DX: M75.22 Bicipital tendinitis, left shoulder (principal)
CPT/HCPCS: 99213

== ENCOUNTER → 2024-01-26 15:25 | Outpatient (BNVA) | payer MEDICAID, SELFPAY | PROVIDERS: PCP Internal Medicine; Visit Provider Physician Assistant | DX: M75.22 Bicipital tendinitis, left shoulder (principal) | CPT/HCPCS: 99212 ==

== ENCOUNTER 2024-02-09 17:20 | Outpatient (REF) | payer MEDICAID, SELFPAY | END 2024-02-09 17:21 | disposition home or self-care (01) | LOC: HO.LNP 17:20 | PROVIDERS: Visit Provider Physician Assistant | DX: Z13.89 Encounter for screening for other disorder (principal) | CPT/HCPCS: 83013 ==

== ENCOUNTER 2024-02-16 17:00 | Outpatient (RCR) | payer MEDICAID, SELFPAY ==
--- NOTE | 2024-01-21 15:58 | MHC.PT.EP ---
[facility] [place] Office [place] Office [place] Office [address] Kenan Tiwari [address] [phone] F: [phone] F: [phone] F: [phone] F: [phone] Physical Therapy Plan of Care Date of Evaluation: 01/21/24 Date of Surgery: N/A Diagnosis: bicipital tendinitis, left shoulder (RL) Assessment: pt is a 33 y/o male presenting to physical therapy w/ referring diagnosis of bicipital tendinitis, left shoulder. His signs and symptoms are more consistent w/ AC sprain. Impairments include pain, decreased range of motion, decreased strength, impaired functional mobility, impaired postural awareness, and altered ambulation mechanics. pt is a good candidate for skilled PT due to age, potential remediation of impairments, typical disease/condition progression and prognosis, comorbidities, and motivation. pt would benefit from skilled PT intervention to provide a tailored strengthening and stretching exercise program, functional training, gait training, postural re-training, neuromuscular re-education, modalities as needed for pain, equipment safety demonstration. Frequency and Duration: The patient will be seen 2x/wk for 4 wks Short Term Goals: pt will be I w/ HEP to promote self-management of condition. pt will improve L shoulder flexion AROM by at least 15 degrees to promote ease in overhead reaching. Fdc Goals: pt will report a statistically significant improvement in self-reported outcome measure, SPADI, to promote return to PLOF. pt will demo proper lifting mechanics x5 reps w/o verbal cueing of 45-50# to promote return to full duty at work. Treatment Plan: Modalities to reduce pain, spasms and effusion. Manual therapy to restore motion and function. Therapeutic exercise to improve strength and flexibility. Neuromuscular re-education for posture and balance. Therapeutic activities to return to functional activities of daily living. Electronically signed by: Ranjana Darling PT, DPT Please sign and return to therapist. Thank you for your referral.
--- NOTE | 2024-03-03 13:34 | MHC.PT.DC ---
[facility] [place] Office [place] Office [place] Office [address] Kenan Tiwari [address] [phone] F: [phone] F: [phone] F: [phone] F: [phone] Physical Therapy Discharge Report Diagnosis: bicipital tendinitis, left shoulder (RL) Date of Surgery: N/A Date of Evaluation: 01/21/24 Date of Discharge: 03/03/24 Treatments to Date: 6 Cancellations to Date: 0 No Shows to Date: 0 Discharge Status: Improved Function Independent with HEP Discharge Summary: Per last treatment note on 02/16/24: Today Kyler comes and reports discomfort within his posterior side of his arm so we kept things on the product safety and standards engineer side today. We did introduce 3 way CARRERA w/ TheraBand to help increase stability within his shoulder. He needed 50% VC/TC on form through his SP exercises and body blade and the 3 way abductions. Anticipate D/C next visit. Electronically signed by: Ranjana Darling PT, DPT Please sign and return to therapist. Thank you for your referral.
== END 2024-03-03 13:34 | disposition home or self-care (01) ==
LOC: HO.PT 17:00
PROVIDERS: PCP Internal Medicine; Visit Provider Physician Assistant
DX: M75.22 Bicipital tendinitis, left shoulder (principal)
CPT/HCPCS: 97110; 97161; 97530

== ENCOUNTER 2024-02-25 08:54 | Outpatient (AMB) | payer MEDICAID, SELFPAY ==
--- NOTE | 2024-02-25 09:36 | AM.OFFVISNUR ---
Intake Intake Visit Reasons: H PYLORI Allergies shellfish derived [SHELLFISH DERIVED] Allergy (Intermediate, Verified 01/26/24 15:50) HIVES Nursing Note Patient presents for collection of H Pylori breath test. Patient has been fasting for 1 hour (nothing to eat, drink, no chewing gum or smoking) has not taken any antacid medication for at least 2 weeks and has no allergies to artificial sweeteners.?? Coding Level of Care Code Established Pt Est Pt Level 1 (01263) Patient Type Established Exam Problem Focused Medical Decision Making Straight Forward Diagnoses Dysphagia R13.10 Assessment & Plan Assessment & Plan (1) Dysphagia: Comment: No dysphagia, Code(s): R13.10 - Dysphagia, unspecified Category: Medical Plan Patient presents for collection of H Pylori breath test. Patient has been fasting for 1 hour (nothing to eat, drink, no chewing gum or smoking) has not taken any antacid medication for at least 2 weeks and has no allergies to artificial sweeteners.???This test checks for an overgrowth of bacteria in your stomach. We all have bacteria but some may have more than others. It is treatable. if the test comes back negative there is nothing else to do. If the test result is positive we will treat you with 2 antibiotics and a medication to decrease the acid in your stomach (PPI) for 2 weeks. Two weeks after you have completed the treatment we will retest you to make sure the overgrowth has resolved. Patient Instructions: Process for specimen collection and reason for testing was explained to the patient. Specimen collection. Patient instructed to take a deep breath and then exhale into the blue bag, filling it up as much as possible. Patient instructed to drink a mixture of water and the artificial sweetener with a straw. A 15 minute wait period was observed. Patient instructed to take a deep breath and then exhale into the pink bag, filling it up as much as possible.??
== END 2024-02-25 09:37 | disposition home or self-care (01) ==
PROVIDERS: PCP Internal Medicine; Visit Provider Physician Assistant
DX: R13.10 Dysphagia, unspecified (principal)

== ENCOUNTER → 2024-02-25 08:54 | Outpatient (BNVA) | payer MEDICAID, SELFPAY | PROVIDERS: PCP Internal Medicine; Visit Provider Physician Assistant | DX: Z11.0 Encounter for screening for intestinal infectious diseases (principal); R13.10 Dysphagia, unspecified | CPT/HCPCS: 99211 ==

== ENCOUNTER 2024-02-25 09:52 | Outpatient (REF) | payer MEDICAID, SELFPAY ==
[2024-03-03 10:05] LABS: H Pylori Breath Test Negative (Negative)
== END 2024-02-25 09:53 | disposition home or self-care (01) ==
LOC: HO.LNP 09:52
PROVIDERS: Visit Provider Physician Assistant
DX: Z11.0 Encounter for screening for intestinal infectious diseases (principal)
CPT/HCPCS: 83013; 99211

== ENCOUNTER 2025-01-15 10:00 | Emergency (ER) | payer OTHER, SELFPAY ==
[2025-01-15 10:06] VITALS: BP 129/69; PULSE 95; RESP 18; TEMP 37.1; O2SAT 96; BMI 39.2
== END 2025-01-15 15:03 | disposition left against medical advice (07) ==
PROVIDERS: Emergency Provider Emergency Medicine; PCP Internal Medicine
DX: R11.10 Vomiting, unspecified (principal); K92.1 Melena
CPT/HCPCS: 99281